=== PATIENT | male | born 1990 | race Caucasian/White ===

== ENCOUNTER 2017-03-22 16:22 | Inpatient (IN) ==
[~2017-03-22 16:22] MED LIST: *HR* Rocuronium Bromide 100 MG/10 ML VIAL IVC ONE
[2017-03-22] MEDS ORDERED: *HR* Midazolam HCl 5 MG/ML VIAL IVP ONE (16:24)
--- NOTE | 2017-03-22 16:29 | Emergency Department Note ---
Overdose - Lab Data Result diagrams: 03/22/17 16:47 03/22/17 16:47 Lab Results 03/22/17 03/22/17 03/22/17 Range/Units 16:47 16:47 17:00 WBC 27.1 H (4.3-11.1) K/mcL RBC 4.88 (4.19-5.50) M/mcL Hgb 14.2 (12.9-16.9) g/dL Hct 41.4 (37.5-50.1) % MCV 84.8 (83.0-100.0) fL MCH 29.1 (28.0-33.3) pg MCHC 34.3 (31.6-35.5) g/dL RDW 12.8 (11.5-14.5) % Plt Count 335 (140-400) K/mcL MPV 11.6 (9.4-12.4) fL Immature Gran % 0.6 (0-4) % Seg Neutrophils % 64.0 % Lymphocytes % 31.6 % Monocytes % 3.1 % Eosinophils % 0.4 % Basophils % 0.3 % Neutrophils # 17.3 H (1.6-8.9) K/mcL Lymphocytes # 8.6 H (0.6-4.6) K/mcL Monocytes # 0.8 (0.0-1.3) K/mcL Eosinophils # 0.1 (0.0-0.6) K/mcL Basophils # 0.1 (0.0-0.2) K/mcL Reactive Lymphocytes Present A (Not Present) ABG pH (7.32-7.45) pH Units ABG pCO2 (35-45) mmHg ABG pO2 (85-104) mmHg ABG HCO3 (21-27) mEQ/L ABG Total CO2 (20-26) mEq/L ABG O2 Saturation (95-98) % ABG Base Excess (-2.0 to 3.0) mEq/L Blood Gas Modality Inspired O2 % Sodium 145 (136-145) mEq/L Potassium 3.7 (3.5-4.5) mEq/L Chloride 108 (98-109) mEq/L Carbon Dioxide 14 L (19-29) mEq/L BUN 7 L (8-26) mg/dL Creatinine 1.26 H (0.72-1.25) mg/dL Est GFR ( Amer) > 60 (> 60) Est GFR (Non-Af Amer) > 60 (> 60) BUN/Creatinine Ratio 6 (6-26) Glucose 253 H (70-99) mg/dL Calculated Osmolality 307 H (280-300) Lactic Acid (0.5-2.2) mmol/L Calcium 9.2 (8.6-10.8) mg/dL Total Bilirubin 0.4 (0.2-1.2) mg/dL Direct Bilirubin 0.2 (0.0-0.5) mg/dL Indirect Bilirubin 0.2 (0.0-1.2) mg/dL AST 26 (5-34) Units/L ALT 17 (0-55) Units/L Alkaline Phosphatase 72 (38-126) Units/L Creatine Kinase 182 (30-200) Units/L Serum Total Protein 8.0 (6.0-8.3) g/dL Albumin 4.2 (3.5-5.0) g/dL Globulin 3.8 H (2.4-3.5) g/dL Albumin/Globulin Ratio 1.1 (1.1-2.2) Urine Color Yellow (Yellow) Urine Clarity Cloudy A (Clear) Urine pH 6.0 (5.0-8.0) pH Units Ur Specific Hayden 1.023 (1.010-1.025) Urine Protein >=300 H (Neg-Trace) mg/dL Urine Glucose (UA) 500 H (Normal) mg/dL Urine Ketones Negative (Negative) mg/dL Urine Blood Moderate H (Negative) Urine Nitrite Negative (Negative) Urine Bilirubin Negative (Negative) Urine Urobilinogen Normal (Normal) mg/dL Ur Leukocyte Esterase Negative (Negative) Urine Microscopic RBC 5-15 H (0-3) per hpf Urine Microscopic WBC 5-15 H (0-3) per hpf Ur Squamous Epith Cells Many H (None-Few) per lpf Urine Bacteria None Seen (None-Few) per hpf Hyaline Casts Moderate H (None-Few) per lpf CSF Volume mL CSF Appearance (Clear) CSF Color (Colorless) CSF RBC (0.000 - 0.002) M/mcL CSF Tot Nucleated Cells (0-5) TNC/mcL CSF Glucose (40-70) mg/dL CSF Xanth Comm (Not Observe) CSF Total Protein (15-45) mg/dL Salicylates < 5.0 L (15-30) mg/dL Urine Opiates Screen (Ajisdm=888) ng/mL Acetaminophen < 1.0 L (10-30) mcg/mL Ur Barbiturates Screen (Qslkdz=725) ng/mL Ur Phencyclidine Scrn (Cutoff=25) ng/mL Ur Amphetamines Screen (Nzotiw=9837) ng/mL U Benzodiazepines Scrn (Ewqowl=625) ng/mL Urine Cocaine Screen (Cutoff= 300) ng/mL U Marijuana (THC) Screen (Cutoff = 50) ng/mL Ethyl Alcohol < 10 (0-10) mg/dL 03/22/17 03/22/17 03/22/17 Range/Units 17:00 17:48 18:01 WBC (4.3-11.1) K/mcL RBC (4.19-5.50) M/mcL Hgb (12.9-16.9) g/dL Hct (37.5-50.1) % MCV (83.0-100.0) fL MCH (28.0-33.3) pg MCHC (31.6-35.5) g/dL RDW (11.5-14.5) % Plt Count (140-400) K/mcL MPV (9.4-12.4) fL Immature Gran % (0-4) % Seg Neutrophils % % Lymphocytes % % Monocytes % % Eosinophils % % Basophils % % Neutrophils # (1.6-8.9) K/mcL Lymphocytes # (0.6-4.6) K/mcL Monocytes # (0.0-1.3) K/mcL Eosinophils # (0.0-0.6) K/mcL Basophils # (0.0-0.2) K/mcL Reactive Lymphocytes (Not Present) ABG pH (7.32-7.45) pH Units ABG pCO2 (35-45) mmHg ABG pO2 (85-104) mmHg ABG HCO3 (21-27) mEQ/L ABG Total CO2 (20-26) mEq/L ABG O2 Saturation (95-98) % ABG Base Excess (-2.0 to 3.0) mEq/L Blood Gas Modality Inspired O2 % Sodium (136-145) mEq/L Potassium (3.5-4.5) mEq/L Chloride (98-109) mEq/L Carbon Dioxide (19-29) mEq/L BUN (8-26) mg/dL Creatinine (0.72-1.25) mg/dL Est GFR ( Amer) (> 60) Est GFR (Non-Af Amer) (> 60) BUN/Creatinine Ratio (6-26) Glucose (70-99) mg/dL Calculated Osmolality (280-300) Lactic Acid 5.1 H* (0.5-2.2) mmol/L Calcium (8.6-10.8) mg/dL Total Bilirubin (0.2-1.2) mg/dL Direct Bilirubin (0.0-0.5) mg/dL Indirect Bilirubin (0.0-1.2) mg/dL AST (5-34) Units/L ALT (0-55) Units/L Alkaline Phosphatase (38-126) Units/L Creatine Kinase (30-200) Units/L Serum Total Protein (6.0-8.3) g/dL Albumin (3.5-5.0) g/dL Globulin (2.4-3.5) g/dL Albumin/Globulin Ratio (1.1-2.2) Urine Color (Yellow) Urine Clarity (Clear) Urine pH (5.0-8.0) pH Units Ur Specific Hayden (1.010-1.025) Urine Protein (Neg-Trace) mg/dL Urine Glucose (UA) (Normal) mg/dL Urine Ketones (Negative) mg/dL Urine Blood (Negative) Urine Nitrite (Negative) Urine Bilirubin (Negative) Urine Urobilinogen (Normal) mg/dL Ur Leukocyte Esterase (Negative) Urine Microscopic RBC (0-3) per hpf Urine Microscopic WBC (0-3) per hpf Ur Squamous Epith Cells (None-Few) per lpf Urine Bacteria (None-Few) per hpf Hyaline Casts (None-Few) per lpf CSF Volume 6.0 mL CSF Appearance Clear (Clear) CSF Color Colorless (Colorless) CSF RBC < 0.002 (0.000 - 0.002) M/mcL CSF Tot Nucleated Cells 5 (0-5) TNC/mcL CSF Glucose (40-70) mg/dL CSF Xanth Comm Not Observed (Not Observe) CSF Total Protein (15-45) mg/dL Salicylates (15-30) mg/dL Urine Opiates Screen Negative (Hpttgq=952) ng/mL Acetaminophen (10-30) mcg/mL Ur Barbiturates Screen Negative (Thblip=854) ng/mL Ur Phencyclidine Scrn Negative (Cutoff=25) ng/mL Ur Amphetamines Screen Negative (Ytqhqi=0163) ng/mL U Benzodiazepines Scrn Positive H (Lwbjgx=539) ng/mL Urine Cocaine Screen Negative (Cutoff= 300) ng/mL U Marijuana (THC) Screen Negative (Cutoff = 50) ng/mL Ethyl Alcohol (0-10) mg/dL 03/22/17 03/22/17 Range/Units 18:01 18:30 WBC (4.3-11.1) K/mcL RBC (4.19-5.50) M/mcL Hgb (12.9-16.9) g/dL Hct (37.5-50.1) % MCV (83.0-100.0) fL MCH (28.0-33.3) pg MCHC (31.6-35.5) g/dL RDW (11.5-14.5) % Plt Count (140-400) K/mcL MPV (9.4-12.4) fL Immature Gran % (0-4) % Seg Neutrophils % % Lymphocytes % % Monocytes % % Eosinophils % % Basophils % % Neutrophils # (1.6-8.9) K/mcL Lymphocytes # (0.6-4.6) K/mcL Monocytes # (0.0-1.3) K/mcL Eosinophils # (0.0-0.6) K/mcL Basophils # (0.0-0.2) K/mcL Reactive Lymphocytes (Not Present) ABG pH 7.28 L (7.32-7.45) pH Units ABG pCO2 57 H (35-45) mmHg ABG pO2 245 H (85-104) mmHg ABG HCO3 26.8 (21-27) mEQ/L ABG Total CO2 28.5 H (20-26) mEq/L ABG O2 Saturation 100 H (95-98) % ABG Base Excess -0.8 (-2.0 to 3.0) mEq/L Blood Gas Modality VC+ Inspired O2 50 % Sodium (136-145) mEq/L Potassium (3.5-4.5) mEq/L Chloride (98-109) mEq/L Carbon Dioxide (19-29) mEq/L BUN (8-26) mg/dL Creatinine (0.72-1.25) mg/dL Est GFR ( Amer) (> 60) Est GFR (Non-Af Amer) (> 60) BUN/Creatinine Ratio (6-26) Glucose (70-99) mg/dL Calculated Osmolality (280-300) Lactic Acid (0.5-2.2) mmol/L Calcium (8.6-10.8) mg/dL Total Bilirubin (0.2-1.2) mg/dL Direct Bilirubin (0.0-0.5) mg/dL Indirect Bilirubin (0.0-1.2) mg/dL AST (5-34) Units/L ALT (0-55) Units/L Alkaline Phosphatase (38-126) Units/L Creatine Kinase (30-200) Units/L Serum Total Protein (6.0-8.3) g/dL Albumin (3.5-5.0) g/dL Globulin (2.4-3.5) g/dL Albumin/Globulin Ratio (1.1-2.2) Urine Color (Yellow) Urine Clarity (Clear) Urine pH (5.0-8.0) pH Units Ur Specific Hayden (1.010-1.025) Urine Protein (Neg-Trace) mg/dL Urine Glucose (UA) (Normal) mg/dL Urine Ketones (Negative) mg/dL Urine Blood (Negative) Urine Nitrite (Negative) Urine Bilirubin (Negative) Urine Urobilinogen (Normal) mg/dL Ur Leukocyte Esterase (Negative) Urine Microscopic RBC (0-3) per hpf Urine Microscopic WBC (0-3) per hpf Ur Squamous Epith Cells (None-Few) per lpf Urine Bacteria (None-Few) per hpf Hyaline Casts (None-Few) per lpf CSF Volume mL CSF Appearance (Clear) CSF Color (Colorless) CSF RBC (0.000 - 0.002) M/mcL CSF Tot Nucleated Cells (0-5) TNC/mcL CSF Glucose 100 H (40-70) mg/dL CSF Xanth Comm (Not Observe) CSF Total Protein 44 (15-45) mg/dL Salicylates (15-30) mg/dL Urine Opiates Screen (Phnngd=081) ng/mL Acetaminophen (10-30) mcg/mL Ur Barbiturates Screen (Kwulzv=416) ng/mL Ur Phencyclidine Scrn (Cutoff=25) ng/mL Ur Amphetamines Screen (Owpcqy=6700) ng/mL U Benzodiazepines Scrn (Xtrgql=669) ng/mL Urine Cocaine Screen (Cutoff= 300) ng/mL U Marijuana (THC) Screen (Cutoff = 50) ng/mL Ethyl Alcohol (0-10) mg/dL Overdose HPI - General Chief Complaint: ED Overdose Stated Complaint: Overdose Source: EMS Mode of arrival: EMS Limitations: altered mental status Nursing Notes Reviewed: Yes Vital Signs Reviewed: Yes - History of Present Illness HPI Narrative: Patient is a 26-year-old male who came by embolus for overdose. EMS was called to 2 victims at the same residence both unresponsive secondary to drug ingestion. The bystanders state they snorted the substance at the home. Both were unresponsive to medics responded to the scene. The other patient responded to 10 mg of Narcan Mr. Riley had 6 mg of Narcan and woke up started spontaneously breathing but was extremely agitated. On arrival here he was very agitated saying some people's names and uncooperative Pt Subjective Complaint: accidental overdose Treatments Prior to Arrival: narcan (6) - Related Data Home Medications Medication Instructions Recorded Confirmed Ibuprofen 10/26/16 Previous Rx's Medication Instructions Recorded Ziprasidone HCl [Geodon] 40 mg PO HS #30 capsule 07/02/16 Clindamycin HCl [Cleocin HCl] 300 mg PO TID #30 cap 10/26/16 Diclofenac Sodium [Voltaren] 50 mg PO Q8HR PRN #30 tablet. 10/26/16 Mupirocin [Bactroban Oint] 1 appl TP BID #22 g 10/26/16 Allergies Allergy/AdvReac Type Severity Reaction Status Date / Time No Known Allergies Allergy Verified 01/31/17 17:52 Limitations: ROS unobtainable due to patients medical condition Past Medical History - Past Medical History Source: old records reviewed, nursing notes reviewed Medical history: Reports: migraine, other Surgical history: Reports: no surgical history Psychiatric history: Reports: anxiety, depression - Social History Smoking Status: Never smoker Smokeless Tobacco Status: No Alcohol use: Reports: rarely Drug use: Reports: none Physical Exam - General Limitations: other ( acutely agitated) - Head Head exam: other (Asians posterior scalp) - Eye Eye exam: Present: mydriasis - ENT ENT exam: normal oropharynx - Chest Chest inspection: Present: normal inspection, symmetric chest wall rise - Respiratory Respiratory exam: Present: normal lung sounds bilaterally - Cardiovascular Cardiovascular exam: Present: regular rate, normal rhythm, normal heart sounds - Psychiatric Psychiatric exam: Present: agitated - Skin Skin exam: Present: diaphoresis Course Course Narrative: Patient received Versed 5 g IM this relaxed him enough to place an IV after multiple doses of Ativan the patient was still agitated and confused we elected at that time to intubate him for his own safety and also to continue the diagnostic workup. After the intubation CT of the head was negative an LP was performed. The patient did have leukocytosis and elevated temp that did decrease after the patient was sedated. He was given fluid resuscitation and sedation and analgesia with propofol and fentanyl. I spoke with the hospitalist service nurse practitioner Trang and also the ICU resident blood cultures were performed and they were transferred port patient to the ICU at this time they do not request any anabolic therapy. 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 Vital Signs Temperature 101 F H 03/22/17 16:27 Pulse Rate 155 03/22/17 16:27 Respiratory Rate 18 03/22/17 16:27 Blood Pressure 90/42 03/22/17 16:27 O2 Sat by Pulse Oximetry 95 03/22/17 16:27 Temperature 99.2 F 03/22/17 19:14 Pulse Rate 105 03/22/17 19:14 Respiratory Rate 16 03/22/17 19:51 Blood Pressure 96/58 03/22/17 19:51 O2 Sat by Pulse Oximetry 100 03/22/17 19:14 Oxygen Delivery Oxygen Delivery Room Air,Ventilator Procedures - Intubation Time out performed: Yes sedative: Versed paralytic: Rocuronium Laryngoscope: fiber optic video scope ET Tube Size: 8 ET Tube Uncuffed: Yes Tube Secured Location: lips Tube Placement Confirmation: visualized tube passing through cords, equal breath sounds bilaterally, confirmation by capnometry Patient Tolerated Procedure: well Intubation Complications: none - Lumbar Puncture Time Out Performed: Yes Patient Position: right lateral decubitus Skin Prep: Povidone-Iodine 1% Local Anesthetic: lidocaine 1% Spinal Needle Gauge: 20G Interspace Used: L4-L5 Fluid Initially Obtained: clear Complications: none Critical Care Time Critical Care Time: Yes Total Critical Care Time: 60 Attestation: Critical care performed: Time is exclusive of separately billable procedures. Time includes: direct patient care, patient reassessment, coordination of patient care, interpretation of data (laboratory data, radiology data, and respiratory data), review of patient's medical records, medical consultation and documentation of patient care. Procedures included in critical care time: Procedures excluded from critical care time: Disposition Clinical Impression: Lactic acidosis Overdose Qualifiers: Encounter type: initial encounter Injury intent: undetermined intent Qualified Code(s): T50.904A - Poisoning by unspecified drugs, medicaments and biological substances, undetermined, initial encounter Disposition: Admitted As Inpatient Condition: Critical
[2017-03-22] MEDS ORDERED: *HR* LORazepam 2 MG/ML VIAL IVP ONE ×3 (16:43→17:03)
[2017-03-22] MEDS ORDERED: *HR* LORazepam 2 MG/ML VIAL ONE (16:45)
[2017-03-22] MEDS ORDERED: 0.9 % Sodium Chloride 1,000 ML IVC ONE ×2 (16:53→17:51)
[2017-03-22 16:55] LABS: Eosinophils % 0.4 %; Immature Granulocytes % 0.6 % (0-4); Lymphocytes % 31.6 %; Mean Platelet Volume 11.6 fL (9.4-12.4)
[2017-03-22 16:56] LABS: Basophils # 0.1 K/mcL (0.0-0.2); Basophils % 0.3 %; Eosinophils # 0.1 K/mcL (0.0-0.6); Hematocrit 41.4 % (37.5-50.1); Hemoglobin 14.2 g/dL (12.9-16.9); Lymphocytes # 8.6 K/mcL (0.6-4.6); Mean Corpuscular HGB Conc 34.3 g/dL (31.6-35.5); Mean Corpuscular Hemoglobin 29.1 pg (28.0-33.3); Mean Corpuscular Volume 84.8 fL (83.0-100.0); Monocytes # 0.8 K/mcL (0.0-1.3); Monocytes % 3.1 %; Neutrophils # 17.3 K/mcL (1.6-8.9); Platelet Count 335 K/mcL (140-400); Red Blood Count 4.88 M/mcL (4.19-5.50); Red Cell Distribution Width 12.8 % (11.5-14.5)
[2017-03-22 17:09] LABS: Alanine Aminotransferase 17 Units/L (0-55); Albumin 4.2 g/dL (3.5-5.0); Albumin/Globulin Ratio 1.1 (1.1-2.2); Alkaline Phosphatase 72 Units/L (38-126); Aspartate Amino Transferase 26 Units/L (5-34); BUN/Creatinine Ratio 6 (6-26); Bilirubin,Direct 0.2 mg/dL (0.0-0.5); Bilirubin,Indirect 0.2 mg/dL (0.0-1.2); Bilirubin,Total 0.4 mg/dL (0.2-1.2); Blood Urea Nitrogen 7 mg/dL (8-26); Calcium 9.2 mg/dL (8.6-10.8); Carbon Dioxide 14 mEq/L (19-29); Chloride 108 mEq/L (98-109); Creatine Kinase 182 Units/L (30-200); Globulin 3.8 g/dL (2.4-3.5); Glucose 253 mg/dL (70-99); Osmolality,Calculated 307 (280-300); Potassium 3.7 mEq/L (3.5-4.5); Sodium 145 mEq/L (136-145); eGFR For African Americans > 60 (> 60); eGFR For Non-African Americans > 60 (> 60)
[2017-03-22 17:10] LABS: Acetaminophen < 1.0 mcg/mL (10-30); Ethanol < 10 mg/dL (0-10); Salicylate < 5.0 mg/dL (15-30)
[2017-03-22 17:11] LABS: Bilirubin,Urine Negative (Negative); Blood,Urine Moderate (Negative); Clarity,Urine Cloudy (Clear); Color,Urine Yellow (Yellow); Glucose,Urine (UA) 500 mg/dL (Normal); Ketones,Urine Negative (Negative); Leukocyte Esterase,Urine Negative (Negative); Nitrite,Urine Negative (Negative); Protein,Urine >=300 mg/dL (Neg-Trace); Specific Gravity,Urine 1.023 (1.010-1.025); Urobilinogen,Urine Normal (Normal)
[2017-03-22] MEDS ORDERED: *HR* Rocuronium Bromide 50 MG/5 ML VIAL IVP ONE ×2 (17:12→17:26)
[2017-03-22 17:14] LABS: Bacteria,Urine None Seen per hpf (None-Few); Hyaline Casts,Urine Moderate per lpf (None-Few); Squamous Epithelial Cell,Urine Many per lpf (None-Few)
[2017-03-22 17:17] LABS: Reactive Lymphocytes Present (Not Present)
[2017-03-22 17:17] LABS: Amphetamine Screen,Urine Negative ng/mL (Cutoff=1000); Barbiturate Screen,Urine Negative ng/mL (Cutoff=200); Benzodiazepines Screen,Urine Positive ng/mL (Cutoff=200); Cannabinoid Screen,Urine Negative ng/mL (Cutoff = 50); Cocaine Screen,Urine Negative ng/mL (Cutoff= 300); Opiate Screen,Urine Negative ng/mL (Cutoff=300); Phencyclidine Screen,Urine Negative ng/mL (Cutoff=25)
[2017-03-22] MEDS ORDERED: Propofol 500 MG/50 ML INFUS..BTL ONE ×2 (17:25→20:10)
[2017-03-22 18:36] LABS: ABG Base Excess -0.8 mEq/L (-2.0 to 3.0); ABG HCO3 26.8 mEQ/L (21-27); ABG Oxygen Saturation 100 % (95-98); ABG PCO2 57 mmHg (35-45); ABG PH 7.28 pH Units (7.32-7.45); ABG PO2 245 mmHg (85-104); ABG TCO2 28.5 mEq/L (20-26)
[2017-03-22 18:38] LABS: Blood Gas FiO2 50 %
[2017-03-22 18:42] LABS: Red Blood Cell,CSF < 0.002 M/mcL
[2017-03-22 18:43] LABS: Appearance,CSF Clear (Clear); Glucose,CSF 100 mg/dL (40-70); Total Protein,CSF 44 mg/dL (15-45)
[2017-03-22] MEDS ORDERED: *HR* FentaNYL (PF) 100 MCG/2 ML VIAL IVP ONE (19:09)
[2017-03-22] MEDS ORDERED: Naloxone 0.4 MG/ML INJ IVP PRN (19:40)
--- NOTE | 2017-03-22 20:04 | Internal Med History&Physical ---
Date of Encounter: 03/22/17 Time of Encounter: 20:01 Assessment and Plan (1) Acute respiratory failure Current visit: Yes Status: Acute Likely related to overdose as discussed below. Continue ventilator support. Repeat ABG and adjust vent based on ABG findings. Critical care consult Qualifiers: Respiratory failure complication: hypoxia and hypercapnia Qualified Code(s) : J96.01 - Acute respiratory failure with hypoxia; J96.02 - Acute respiratory failure with hypercapnia (2) Overdose Current visit: Yes Status: Acute Patient ingestion of unknown substance with possibly opioids as well. Patient apparently responded initially to Narcan 6mg and then became extremely agitated and would not respond to sedation so the patient was intubated in the emergency department. Drug screen was positive for benzodiazepines however this was obtained after the patient received Versed and lorazepam for attempted sedation. Drug screen was otherwise negative. Patient does have an anion gap Metabolic acidosis. Possible causes could be lactic acidosis or coingestions with methanol, ethylene glycol, or propylene glycol. We will check serum osmolality for osmolar gap. We will check methanol level. We will recheck lactic acid. Patient does meet SIRS criteria however there is no source of infection. Leukocytosis, tachycardia, fever is likely due to agitation and stress response from ingestion and agitation related to ingestion. LP is done and is not concerning for infection. We will hold off on antibiotics at this time, if the patient continues to spike fevers, leukocytosis persists, or source of infection presents itself we will initiate antibiotics. Qualifiers: Encounter type: initial encounter Injury intent: undetermined intent Qualified Code(s): T50.904A - Poisoning by unspecified drugs, medicaments and biological substances, undetermined, initial encounter (3) LORETTA (acute kidney injury) Current visit: Yes Status: Acute Creatinine 1.26 on presentation, was 0.87 on January 31. Likely related to prerenal azotemia. Patient has good urine output. Will fluid hydrate and recheck creatinine in the morning (4) Lactic acidosis Current visit: Yes Status: Acute 5.1 on presentation. Likely due to hypoperfusion in the setting of drug overdose and concern for opiates or some other [employer] depressant. Blood pressure stable at this time. Patient received 2 L bolus in the emergency department and maintenance fluid have been initiated. We will recheck lactic acid. (5) DVT prophylaxis Current visit: Yes Status: Acute Heparin 5000 units subcutaneous every 8 hours. Internal Medicine - H&P: HPI Chief complaint: Overdose Admitted From: Emergency Dept Plans for Post Hospital Care: Home History of present illness: Mr. Desai is a 26 year old male who presents with overdose. Patient is intubated and sedated and is therefore unable to give a history, history is obtained from the ER physician and documentation. Apparently the patient was wanted to suspected overdoses from the same home who are brought into the emergency department at the same time. Records report that bystanders stated that they snorted an unknown substance and then became unresponsive. Patient was given 6 mg of Narcan by EMS and became extremely agitated. Patient remained significantly agitated despite medication therefore the emergency department determined to intubate for patient safety. At the time I examined the patient was intubated and sedated but was moving all 4 extremities spontaneously. Past Med Surg Social Fam HX - Past Medical History Source: other (History listed is derived from previous admissions, history at this time is unobtainable due to mental status) Medical history: migraine, other Psychiatric history: anxiety, depression - Past Surgical History Surgical History: no surgical history (History listed is derived from previous admissions, history at this time is unobtainable due to mental status) - Social History Smoking Status: Never smoker Smokeless Tobacco Status: No Alcohol use: rarely Drug use: none Additional social history: History listed is derived from previous admissions, history at this time is unobtainable due to mental status - Additional Family History Additional family history: Family history is unobtainable at this time due to mental status. Internal Medicine - H&P: Meds Ziprasidone HCl [Geodon] 40 mg PO HS #30 capsule 07/02/16 [Rx] Clindamycin HCl [Cleocin HCl] 300 mg PO TID #30 cap 10/26/16 [Rx] Diclofenac Sodium [Voltaren] 50 mg PO Q8HR PRN #30 tablet. 10/26/16 [Rx] Ibuprofen 10/26/16 [History] Mupirocin [Bactroban Oint] 1 appl TP BID #22 g 10/26/16 [Rx] Allergies No Known Allergies Allergy (Verified 01/31/17 17:52) ROS unobtainable: due to endotracheal tube All Systems PM: A 10-system review of systems was performed and is negative for pertinent findings except as documented above in the HPI. - Constitutional Vitals: Temp Pulse Resp BP Pulse Ox 99.2 F 105 16 96/58 100 03/22/17 19:14 03/22/17 19:14 03/22/17 19:51 03/22/17 19:51 03/22/17 19:14 Exam: Patient is intubated and sedated. He is moving all 4 extremities spontaneously but is otherwise nonresponsive. He does not appear to be in any acute distress. - Head Head exam: Present: atraumatic, normal inspection, normocephalic - Eye Additional comments: Pupils are constricted but reactive to light equally - ENT ENT exam: Present: mucous membranes moist - Neck Neck exam general surgery: Present: supple, trachea midline. Absent: nuchal rigidity - Respiratory Respiratory exam: Present: CTAB. Absent: rales, respiratory distress, rhonchi, wheezes, tachypnea - Cardiovascular Cardiovascular exam: Present: RRR. Absent: gallop, rubs, systolic murmur - GI/Abdominal GI/Abdominal exam: Present: normal bowel sounds, soft. Absent: distended, tenderness - Extremities Exam Extremities exam: Present: warm. Absent: pedal edema, tenderness - Neurological Exam Additional comments: Patient is intubated and sedated so is unable to participate in the neuro exam. Patient is moving all 4 extremities spontaneously. - Psychiatric Additional comments: Unable to assess due to sedation. - Skin Skin exam: Present: dry, intact, warm Internal Med - H&P Results - Labs CBC & Chem 7: 03/22/17 16:47 03/22/17 16:47 - ABG Interpretation Interpretation: ABG interpreted by me Interpretation: respiratory acidosis, metabolic acidosis
[2017-03-22] MEDS ORDERED: Lacri-Lube 3.5 GM TUBE BOTH EYES PRN (20:09)
[2017-03-22] MEDS ORDERED: 0.9 % Sodium Chloride 1,000 ML IVC SCH (20:15)
[2017-03-22] MEDS: Chlorhexidine Rinse 15 ML MOUTHWASH MM SCH (20:59)
[2017-03-22] MEDS: Dexmedetomidine HCl 400 MCG/100 ML MLS IVC SCH (21:00)
--- NOTE | 2017-03-22 21:07 | Event Note ---
Date of Encounter: 03/22/17 Time of Encounter: 21:07 I examined this patient and my medical decision-making was reviewed with Dr. Cochran. I agree with the documented findings, disposition and treatment plan as described except to the extent set forth below. 26 yo CM brought to ER after ingestion of unknown substance along with another patient. The other patient responded after 10 mg of Narcan. However, Mr. Desai became extremely agitated after 6 mg narcan and had to be intubated for his own protection and to provide care. He had a fever on arrival of 101. He had a LP in the ER. On exam, he is intubated on propofol but continues to move. Eyes constricted but reactive to light. CTAB. S1 & S2 present with tachycardia. OG in place. Labs reviewed. CXR personally reviewed - ET tube in satisfactory position. No infiltrates noted. A/P: 1. Acute hypoxic and hypercapnic respiratory failure - Continue ventilator with sedation. Precedex added as the patient continues to move on propofol. VAP precautions. ABG repeat and adjust vent. settings accordingly. Pulm. Crit. care consult. Admit to inpatient status. ICU. Telemetry. High risk due to need for ventilator support and risk of sepsis. 2. OD with opioids and possibly another substance: Sedation now with ventilation. Monitor off antibiotics. Blood cultures obtained. Will follow and if spikes another temp., will start abx. 3. SIRS - due to Overdose. No focal source of infection appreciated. 4. Respiratory acidosis and AG metabolic acidosis on presentation FELIPE Graves
[2017-03-22 21:30] LABS: ABG Base Excess 0.4 mEq/L (-2.0 to 3.0); ABG HCO3 26.5 mEQ/L (21-27); ABG Oxygen Saturation 100 % (95-98); ABG PCO2 48 mmHg (35-45); ABG PH 7.35 pH Units (7.32-7.45); ABG PO2 221 mmHg (85-104); Blood Gas FiO2 50 %
[2017-03-22 21:45] LABS: BUN/Creatinine Ratio 8 (6-26); Blood Urea Nitrogen 7 mg/dL (8-26); Calcium 8.2 mg/dL (8.6-10.8); Carbon Dioxide 25 mEq/L (19-29); Chloride 112 mEq/L (98-109); Glucose 88 mg/dL (70-99); Magnesium 1.8 mg/dL (1.6-2.6); Osmolality,Calculated 299 (280-300); Potassium 3.2 mEq/L (3.5-4.5); Sodium 146 mEq/L (136-145); eGFR For African Americans > 60 (> 60); eGFR For Non-African Americans > 60 (> 60)
[2017-03-22] MEDS ORDERED: Potassium Chloride Elixir 20 MEQ/15 ML UDC GTUBE ONE (22:56)
[2017-03-22] MEDS: D5% in 0.45% NACL 1,000 ML IVC SCH (23:02)
[2017-03-22] MEDS: *HR* Heparin 5,000 UNIT/ML VIAL SQ SCH (23:02)
[2017-03-22] MEDS: Lacri-Lube 3.5 GM TUBE BOTH EYES SCH (23:02)
[2017-03-23] MEDS: Lacri-Lube 3.5 GM TUBE BOTH EYES SCH ×3 (02:12→10:13)
[2017-03-23 03:25] LABS: Alanine Aminotransferase 15 Units/L (0-55); Albumin/Globulin Ratio 1.3 (1.1-2.2); Alkaline Phosphatase 44 Units/L (38-126); Aspartate Amino Transferase 27 Units/L (5-34); BUN/Creatinine Ratio 9 (6-26); Bilirubin,Direct 0.3 mg/dL (0.0-0.5); Bilirubin,Indirect 0.3 mg/dL (0.0-1.2); Bilirubin,Total 0.6 mg/dL (0.2-1.2); Blood Urea Nitrogen 7 mg/dL (8-26); Calcium 8.1 mg/dL (8.6-10.8); Carbon Dioxide 23 mEq/L (19-29); Chloride 113 mEq/L (98-109); Globulin 2.6 g/dL (2.4-3.5); Glucose 105 mg/dL (70-99); Magnesium 1.7 mg/dL (1.6-2.6); Osmolality,Calculated 294 (280-300); Phosphorous 2.7 mg/dL (2.3-4.7); Potassium 3.5 mEq/L (3.5-4.5); Sodium 143 mEq/L (136-145); Total Protein 5.9 g/dL (6.0-8.3); eGFR For African Americans > 60 (> 60); eGFR For Non-African Americans > 60 (> 60)
[2017-03-23 03:26] LABS: Albumin 3.3 g/dL (3.5-5.0)
[2017-03-23] MEDS: Dexmedetomidine HCl 400 MCG/100 ML MLS IVC SCH ×2 (03:38→08:30)
[2017-03-23 03:39] LABS: Basophils % 0.1 %; Eosinophils % 0.1 %; Hematocrit 32.2 % (37.5-50.1); Hemoglobin 11.1 g/dL (12.9-16.9); Immature Granulocytes % 0.2 % (0-4); Immature Platelets 7.9 % (1.1-6.1); Lymphocytes # 2.1 K/mcL (0.6-4.6); Lymphocytes % 22.7 %; Mean Corpuscular HGB Conc 34.5 g/dL (31.6-35.5); Mean Corpuscular Hemoglobin 28.7 pg (28.0-33.3); Mean Corpuscular Volume 83.2 fL (83.0-100.0); Mean Platelet Volume 11.3 fL (9.4-12.4); Monocytes # 0.6 K/mcL (0.0-1.3); Monocytes % 6.6 %; Neutrophils # 6.6 K/mcL (1.6-8.9); Platelet Count 162 K/mcL (140-400); Red Blood Count 3.87 M/mcL (4.19-5.50); Red Cell Distribution Width 12.8 % (11.5-14.5); Segmented Neutrophils % 70.3 %
[2017-03-23 04:40] LABS: ABG Base Excess 2.2 mEq/L (-2.0 to 3.0); ABG HCO3 27.8 mEQ/L (21-27); ABG Oxygen Saturation 99 % (95-98); ABG PCO2 47 mmHg (35-45); ABG PH 7.38 pH Units (7.32-7.45); ABG PO2 153 mmHg (85-104); ABG TCO2 29.2 mEq/L (20-26)
[2017-03-23 04:41] LABS: Blood Gas FiO2 30 %
[2017-03-23] MEDS: D5% in 0.45% NACL 1,000 ML IVC SCH (06:08)
[2017-03-23] MEDS: Chlorhexidine Rinse 15 ML MOUTHWASH MM SCH (08:29)
[2017-03-23] MEDS: *HR* Heparin 5,000 UNIT/ML VIAL SQ SCH ×2 (08:34→16:50)
--- NOTE | 2017-03-23 08:34 | Pulmonology Consult Note ---
<Fidel Gary - Last Filed: 03/23/17 08:47> Date of Encounter: 03/23/17 Time of Encounter: 08:28 Assessment and Plan (1) Respiratory failure Current Visit: Yes Status: Acute Secondary to Heroin use. CXr reviewed and reveals some increased pulmonary vasculature. Possibly some mild non cardiogenic pulmonary edema from Heroin. Intubated Extubated 03/23/17 Currently he is comfortable on 2L. Continue to monitor. IF develops worsening dyspnea with fever may consider Aspiration pneumonia. However no evidence at this time so we will hold off on any antibiotics. We will continue to monitor him and if he continues to improve will transfer to medicine floor later this afternoon. (2) Overdose Current Visit: Yes Status: Acute Patient states he snorted heroin for the first time. Denies suicidal ideations or depression. States he was " just trying to have a good time". (3) Lactic acidosis Current Visit: Yes Status: Acute resolved (4) LORETTA (acute kidney injury) Current Visit: Yes Status: Acute resolved (5) Leukocytosis Current Visit: Yes Status: Acute stress reaction. resolved. (6) DVT prophylaxis Current Visit: Yes Status: Acute SQ heparin History of Present Illness Consult date: 03/23/17 Requesting physician: Dell Clark Reason for consult: other (overdose) Chief complaint: AMS History of present illness: Mr. Desai is a 26-year-old male with the history of anxiety and depression who was admitted to the [facility]. He will came in with another individual reportedly had snorted a substance. The first individual came in with him improved with Narcan. However this patient became very combative and had to be intubated for his own safety per medical record. He has since been extubated is alert and orientated and following commands. Upon further questioning patient denies past medical history. He denies being on any current prescription medications. He states that he was of her friend's house and snorted heroin. He states that this was his first time doing so. He denies any IV drug use. He denies any pain or dyspnea at this time. He has no further complaints or concerns at this time. Past Med Surg Social Fam HX - Past Medical History Medical history: migraine, other Psychiatric history: anxiety, depression - Past Surgical History Surgical History: no surgical history (History listed is derived from previous admissions, history at this time is unobtainable due to mental status) - Social History Smoking Status: Never smoker Smokeless Tobacco Status: No Alcohol use: rarely Drug use: none Medications and Allergies Ibuprofen [Motrin] 200 - 400 mg PO Q4HR PRN 03/23/17 [History] Allergies No Known Allergies Allergy (Verified 01/31/17 17:52) ROS unobtainable: due to endotracheal tube All Systems: A 10-system review of systems was performed and is negative for pertinent findings except as documented above in the HPI. - Constitutional Constitutional: no chills, no weight gain, no weight loss - EENT Eyes: no loss of vision Ears: no decreased hearing - Cardiovascular Cardiovascular: no chest pain - Respiratory Respiratory: no cough, no dyspnea, no wheezing - Gastrointestinal Gastrointestinal: no abdominal pain, no diarrhea, no vomiting - Genitourinary Genitourinary: no dysuria, no hematuria - Musculoskeletal Musculoskeletal: no joint pain - Integumentary Integumentary: no rash - Psychiatric Psychiatric: no depression, no suicidal ideation - Hematologic/Lymphatic Hematologic/Lymphatic: no easy bleeding Physical Examination Vital Signs: Vital Signs, Last 4 Hours Temp Pulse Resp BP Pulse Ox 03/23/17 07:30 98.4 F 03/23/17 07:24 16 03/23/17 07:00 92 17 105/70 100 03/23/17 06:35 18 90/63 99 03/23/17 06:00 97.9 F 72 17 93/54 98 03/23/17 05:00 73 16 92/55 98 03/23/17 04:56 97.9 F Gen.: This is a well-developed well-nourished 26-year-old male who is currently alert and orientated to person place time and situation. Lying in bed appears to be comfortable and in no acute distress. Head: Head is normocephalic atraumatic. HEENT: Anicteric sclera, pupils equally round reactive light accommodation. Moist mucous membranes. Trachea midline. Heart: Regular rate and rhythm without murmurs rubs or gallops. Lungs: Mild expiratory wheezes bilaterally that results in cough. Normal effort breathing. Abdomen: Abdomen is soft, nondistended nontender to palpation. Musculoskeletal: Grossly normal for age no gross deformity noted. Extremities: No clubbing, cyanosis or edema. Integument: No rashes or lesions noted. Ventilator Settings Ventilator Settings: Ventilator Settings, Last 8 Hours Ventilator Mode CPAP Ventilator Mode CPAP Ventilator Mode VC+ Ventilator Mode VC+ Ventilator Mode VC+ Ventilator Mode VC+ Ventilator Mode VC+ Ventilator Mode VC+ Ventilator Mode VC+ Ventilator Mode VC+ Ventilator Mode VC+ Ventilator Tidal Volume 400 Setting Ventilator Tidal Volume 400 Setting Ventilator Tidal Volume 400 Setting Ventilator Tidal Volume 400 Setting Ventilator Tidal Volume 400 Setting Ventilator Respiratory Rate 14 Setting Ventilator Respiratory Rate 14 Setting Ventilator Respiratory Rate 14 Setting Ventilator Respiratory Rate 14 Setting Ventilator Respiratory Rate 14 Setting Actual Respiratory Rate 18 Actual Respiratory Rate 18 Actual Respiratory Rate 18 Actual Respiratory Rate 18 Actual Respiratory Rate 14 Positive End Expiratory 5 Pressure Positive End Expiratory 5 Pressure Positive End Expiratory 5 Pressure Positive End Expiratory 5 Pressure Positive End Expiratory 5 Pressure Positive End Expiratory 5 Pressure Peak Inspiratory Airway 11 Pressure Peak Inspiratory Airway 16 Pressure Peak Inspiratory Airway 16 Pressure Peak Inspiratory Airway 16 Pressure Peak Inspiratory Airway 18 Pressure Results - Laboratory Findings CBC and BMP: 03/23/17 03:27 03/23/17 03:03 ABG ABG pH 7.38 pH Units (7.32-7.45) 03/23/17 04:30 ABG pCO2 47 mmHg (35-45) H 03/23/17 04:30 ABG pO2 153 mmHg (85-104) H 03/23/17 04:30 ABG O2 Saturation 99 % (95-98) H 03/23/17 04:30 Abnormal lab findings: Abnormal lab results RBC 3.87 M/mcL (4.19-5.50) L 03/23/17 03:27 Hgb 11.1 g/dL (12.9-16.9) L D 03/23/17 03:27 Hct 32.2 % (37.5-50.1) L 03/23/17 03:27 Reactive Lymphocytes Present (Not Present) A 03/22/17 16:47 Immature Plt Fraction 7.9 % (1.1-6.1) H 03/23/17 03:27 ABG pCO2 47 mmHg (35-45) H 03/23/17 04:30 ABG pO2 153 mmHg (85-104) H 03/23/17 04:30 ABG HCO3 27.8 mEQ/L (21-27) H 03/23/17 04:30 ABG Total CO2 29.2 mEq/L (20-26) H 03/23/17 04:30 ABG O2 Saturation 99 % (95-98) H 03/23/17 04:30 Chloride 113 mEq/L (98-109) H 03/23/17 03:03 BUN 7 mg/dL (8-26) L 03/23/17 03:03 Glucose 105 mg/dL (70-99) H 03/23/17 03:03 POC Glucose 95 (58-89) H 03/22/17 20:28 Serum Osmolality 301 mOsm/kg (280-300) H 03/22/17 21:25 Calcium 8.1 mg/dL (8.6-10.8) L 03/23/17 03:03 Serum Total Protein 5.9 g/dL (6.0-8.3) L D 03/23/17 03:03 Albumin 3.3 g/dL (3.5-5.0) L D 03/23/17 03:03 Urine Clarity Cloudy (Clear) A 03/22/17 17:00 Urine Protein >=300 mg/dL (Neg-Trace) H 03/22/17 17:00 Urine Glucose (UA) 500 mg/dL (Normal) H 03/22/17 17:00 Urine Blood Moderate (Negative) H 03/22/17 17:00 Urine Microscopic RBC 5-15 per hpf (0-3) H 03/22/17 17:00 Urine Microscopic WBC 5-15 per hpf (0-3) H 03/22/17 17:00 Ur Squamous Epith Cells Many per lpf (None-Few) H 03/22/17 17:00 Hyaline Casts Moderate per lpf (None-Few) H 03/22/17 17:00 CSF Glucose 100 mg/dL (40-70) H 03/22/17 18:01 Salicylates < 5.0 mg/dL (15-30) L 03/22/17 16:47 Acetaminophen < 1.0 mcg/mL (10-30) L 03/22/17 16:47 U Benzodiazepines Scrn Positive ng/mL ([id number]) H 03/22/17 17:00 - Clinical Findings Intake & Output: Intake & Output 03/22/17 03/23/17 03/23/17 23:59 07:59 15:59 Intake Total 1450 / 2450 1180 / 1180 Output Total 1000 / 1000 300 / 300 Balance 450 / 1450 880 / 880 Consult Discharge Plan - Plan Referrals: NO,PCP [Primary Care Provider] - <Srinath Rodriguez M - Last Filed: 03/23/17 16:38> Date of Encounter: 03/23/17 Past Med Surg Social Fam HX - Family History Mother Living Status: Still Living Father Living Status: Age at : 60 Cause of : HIV All Systems: A 10-system review of systems was performed and is negative for pertinent findings except as documented above in the HPI. Physical Examination Vital Signs: Vital Signs, Last 4 Hours Temp Pulse Resp BP Pulse Ox 03/23/17 10:00 110/72 03/23/17 08:00 90 16 101/63 100 03/23/17 07:30 98.4 F 03/23/17 07:24 16 03/23/17 07:00 92 17 105/70 100 03/23/17 06:35 18 90/63 99 Ventilator Settings Ventilator Settings: Ventilator Settings, Last 8 Hours Ventilator Mode CPAP Ventilator Mode CPAP Ventilator Mode VC+ Ventilator Mode VC+ Ventilator Mode VC+ Ventilator Mode VC+ Ventilator Mode VC+ Ventilator Mode VC+ Ventilator Tidal Volume 400 Setting Ventilator Tidal Volume 400 Setting Ventilator Tidal Volume 400 Setting Ventilator Tidal Volume 400 Setting Ventilator Respiratory Rate 14 Setting Ventilator Respiratory Rate 14 Setting Ventilator Respiratory Rate 14 Setting Ventilator Respiratory Rate 14 Setting Actual Respiratory Rate 18 Actual Respiratory Rate 18 Actual Respiratory Rate 18 Actual Respiratory Rate 18 Positive End Expiratory 5 Pressure Positive End Expiratory 5 Pressure Positive End Expiratory 5 Pressure Positive End Expiratory 5 Pressure Positive End Expiratory 5 Pressure Peak Inspiratory Airway 11 Pressure Peak Inspiratory Airway 16 Pressure Peak Inspiratory Airway 16 Pressure Peak Inspiratory Airway 16 Pressure Results - Laboratory Findings CBC and BMP: 03/23/17 03:27 03/23/17 03:03 ABG ABG pH 7.38 pH Units (7.32-7.45) 03/23/17 04:30 ABG pCO2 47 mmHg (35-45) H 03/23/17 04:30 ABG pO2 153 mmHg (85-104) H 03/23/17 04:30 ABG O2 Saturation 99 % (95-98) H 03/23/17 04:30 Abnormal lab findings: Abnormal lab results RBC 3.87 M/mcL (4.19-5.50) L 03/23/17 03:27 Hgb 11.1 g/dL (12.9-16.9) L D 03/23/17 03:27 Hct 32.2 % (37.5-50.1) L 03/23/17 03:27 Reactive Lymphocytes Present (Not Present) A 03/22/17 16:47 Immature Plt Fraction 7.9 % (1.1-6.1) H 03/23/17 03:27 ABG pCO2 47 mmHg (35-45) H 03/23/17 04:30 ABG pO2 153 mmHg (85-104) H 03/23/17 04:30 ABG HCO3 27.8 mEQ/L (21-27) H 03/23/17 04:30 ABG Total CO2 29.2 mEq/L (20-26) H 03/23/17 04:30 ABG O2 Saturation 99 % (95-98) H 03/23/17 04:30 Chloride 113 mEq/L (98-109) H 03/23/17 03:03 BUN 7 mg/dL (8-26) L 03/23/17 03:03 Glucose 105 mg/dL (70-99) H 03/23/17 03:03 POC Glucose 95 (58-89) H 03/22/17 20:28 Serum Osmolality 301 mOsm/kg (280-300) H 03/22/17 21:25 Calcium 8.1 mg/dL (8.6-10.8) L 03/23/17 03:03 Serum Total Protein 5.9 g/dL (6.0-8.3) L D 03/23/17 03:03 Albumin 3.3 g/dL (3.5-5.0) L D 03/23/17 03:03 Urine Clarity Cloudy (Clear) A 03/22/17 17:00 Urine Protein >=300 mg/dL (Neg-Trace) H 03/22/17 17:00 Urine Glucose (UA) 500 mg/dL (Normal) H 03/22/17 17:00 Urine Blood Moderate (Negative) H 03/22/17 17:00 Urine Microscopic RBC 5-15 per hpf (0-3) H 03/22/17 17:00 Urine Microscopic WBC 5-15 per hpf (0-3) H 03/22/17 17:00 Ur Squamous Epith Cells Many per lpf (None-Few) H 03/22/17 17:00 Hyaline Casts Moderate per lpf (None-Few) H 03/22/17 17:00 CSF Glucose 100 mg/dL (40-70) H 03/22/17 18:01 Salicylates < 5.0 mg/dL (15-30) L 03/22/17 16:47 Acetaminophen < 1.0 mcg/mL (10-30) L 03/22/17 16:47 U Benzodiazepines Scrn Positive ng/mL (Ufrqbo=[id number]) H 03/22/17 17:00 - Clinical Findings Intake & Output: Intake & Output 03/22/17 03/23/17 03/23/17 23:59 07:59 15:59 Intake Total 1450 / 2450 1180 / 1180 60 / 60 Output Total 1000 / 1000 300 / 300 200 / 200 Balance 450 / 1450 880 / 880 -140 / -140 Weight 61 kg - Attending Attestation I examined this patient and my medical decision-making was reviewed with the EUCLID OPERATOR/PA/Advanced Practice Nurse/Resident Physician. I agree with the documented findings, disposition and treatment plan as described except to the extent set forth below. Patient seen and examined. Labs, radiology, chart personally reviewed. 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 Patient has abnormal chest x-ray and suspect aspiration to be covered with antibiotics. Cardiovascular: stable GI: Nutrition per dietary and GI prophylaxis per routine Heme: DVT prophylaxis per routine ID: Continue antibiotic and plan to de-escalation Renal; urine out put and renal funtion reviewed Endorcine: blood glucose is monitored Lines: all lines checked and no evidence of infections Skin: skin care to prevent pressure ulcers per nursing routine care Patient denies any suicidal thoughts and advised to change lifestyle. Patient transferred to the floor.
[2017-03-23] MEDS ORDERED: Pantoprazole 40 MG VIAL IVPB SCH (09:00)
[2017-03-23] MEDS ORDERED: Lacri-Lube 3.5 GM TUBE BOTH EYES PRN (12:52)
[2017-03-23] MEDS ORDERED: Naloxone 0.4 MG/ML INJ IVP PRN (12:52)
[2017-03-23] MEDS: Acetaminophen 325 MG TABLET PO PRN (14:08)
[2017-03-23] MEDS: Ampicillin/Sulbactam 1,500 MG in 0.9 % Sodium Chloride Mini Bag 100 ML IVPB SCH ×2 (15:36→16:49)
[2017-03-23] MEDS: Ipratropium/Albuterol Neb 3 ML IH SCH ×3 (15:45→23:51)
[2017-03-23] MEDS ORDERED: Lacri-Lube 3.5 GM TUBE BOTH EYES SCH (16:00)
--- NOTE | 2017-03-23 18:16 | Electrocardiograph Report ---
[address] [place] [address] Test Date: 2017-03-22 Pat Name: Augustin Desai Department: 109 Room: [facility] Gender: M Saturation Diver: CAROL : 1990 Requested By: Matias Robertson Order Number: [id number] Reading MD: Kristy Cordero Measurements Intervals [place] Rate: 94 P: 58 W[place]: 136 QRS: -9 QRSD: 94 T: 69 QT: 355 QTc: 407 Interpretive Statements SINUS RHYTHM Electronically Signed On 03-23-2017 18:14:31 EDT by Kristy Cordero
[2017-03-24] MEDS: Ampicillin/Sulbactam 1,500 MG in 0.9 % Sodium Chloride Mini Bag 100 ML IVPB SCH ×4 (00:24→17:35)
[2017-03-24] MEDS: Acetaminophen 325 MG TABLET PO PRN ×4 (00:24→22:08)
[2017-03-24] MEDS: *HR* Heparin 5,000 UNIT/ML VIAL SQ SCH ×3 (00:24→14:44)
[2017-03-24] MEDS: Ipratropium/Albuterol Neb 3 ML IH SCH ×6 (03:55→23:16)
[2017-03-24 05:46] LABS: Basophils % 0.1 %; Eosinophils % 0.1 %; Hemoglobin 11.2 g/dL (12.9-16.9); Immature Granulocytes % 0.3 % (0-4); Lymphocytes # 2.1 K/mcL (0.6-4.6); Lymphocytes % 27.1 %; Mean Corpuscular Hemoglobin 28.9 pg (28.0-33.3); Mean Corpuscular Volume 82.7 fL (83.0-100.0); Mean Platelet Volume 11.8 fL (9.4-12.4); Monocytes # 0.4 K/mcL (0.0-1.3); Monocytes % 5.6 %; Neutrophils # 5.1 K/mcL (1.6-8.9); Platelet Count 129 K/mcL (140-400); Red Blood Count 3.87 M/mcL (4.19-5.50); Red Cell Distribution Width 12.5 % (11.5-14.5); Segmented Neutrophils % 66.8 %
[2017-03-24 06:02] LABS: BUN/Creatinine Ratio 8 (6-26); Blood Urea Nitrogen 6 mg/dL (8-26); Calcium 8.7 mg/dL (8.6-10.8); Carbon Dioxide 28 mEq/L (19-29); Chloride 106 mEq/L (98-109); Glucose 106 mg/dL (70-99); Osmolality,Calculated 294 (280-300); Potassium 2.7 mEq/L (3.5-4.5); Sodium 143 mEq/L (136-145); eGFR For African Americans > 60 (> 60); eGFR For Non-African Americans > 60 (> 60)
[2017-03-24] MEDS ORDERED: Potassium Chloride Elixir 20 MEQ/15 ML UDC PO ONE (08:08)
[2017-03-24] MEDS ORDERED: Potassium Chloride 20 MEQ, Lidocaine 1% 2 ML in D5% in Water 250 ML IVPB ONE (08:08)
[2017-03-24] MEDS ORDERED: *HR* Promethazine 25 MG/ML VIAL IVP PRN (15:06)
[2017-03-24] MEDS ORDERED: Ondansetron 4 MG/2 ML VIAL IVP PRN (15:06)
--- NOTE | 2017-03-24 15:15 | Internal Med Progress Note ---
Date of Encounter: 03/24/17 Time of Encounter: 13:30 - Assessment and plan (1) Overdose Current Visit: Yes Status: Acute Assessment and plan: Patient stating he overdosed on what he thinks was heroin. He was intubated and spent one night in the intensive care unit, extubated the next day and transferred to observation unit. Head CT negative. Chest x-ray with pulmonary vascular congestion. On examination, patient with fair aeration throughout and coarse crackles noted-chest CT ordered at this time. Given that he was unresponsive and intubated, concern for possible aspiration. Lumbar puncture unremarkable-CSF culture negative. Blood cultures negative. Leukocytosis resolved. Lactic acidosis resolved. Urinalysis negative. We will continue Unasyn. Patient now has blood-tinged sputum. Scant amount of pink sputum noted , will trend. No signs of active bleeding or airway compromise. Patient is alert and oriented 3 and his biggest complaint at this time is generalized body aches and headache. He denies any vision changes or gait abnormalities. Will add anti-emetics to his regimen. Chest CT pending, will observe overnight and possibly discharge tomorrow pending clinical outcomes. ITS Impressions Head CT 03/22/17 17:24 IMPRESSION: No acute intracranial abnormality. D/ / Jared Balderas MD / Jared Balderas MD Interpreting Provider: Jared Balderas MD Chest X-Ray 03/22/17 17:42 IMPRESSION: ET tube in satisfactory position. Mild pulmonary vascular congestion. D/ / Brian Moore MD / Brian Moore MD Interpreting Provider: Brian Moore MD X-Ray 03/22/17 20:09 IMPRESSION: Enteric tube side port at the level of the GE junction and advancement by approximately 5 cm recommended. D/ / Jared Balderas MD / Jared Balderas MD Interpreting Provider: Jared Balderas MD Chest X-Ray 03/22/17 20:37 IMPRESSION: Retraction of the endotracheal tube to the level of the thoracic inlet approximately 8.7 cm from the christian. Follow-up radiograph comparison does show advancement of the tube. D/ / Jared Balderas MD / Jared Balderas MD Interpreting Provider: Jared Balderas MD Chest X-Ray 03/22/17 20:37 IMPRESSION: 1. Endotracheal tube 2.6 cm above the christian. 2. Pulmonary vascular congestion. D/ / Prakash Sue MD / Prakash Sue MD Interpreting Provider: Prakash Sue MD X-Ray 03/22/17 20:37 IMPRESSION: Interval placement of enteric tube which appears appropriately position with side port and tip projecting over the expected position of the gastric body. D/ / Jared Balderas MD / Jared Balderas MD Interpreting Provider: Jared Balderas MD Chest X-Ray 03/24/17 06:00 IMPRESSION: 1. Interval extubation. 2. No acute cardiopulmonary process identified. D/ / Jesse Nolan MD / Jesse Nolan MD Interpreting Provider: Jesse Nolan MD Qualifiers: Encounter type: initial encounter Injury intent: undetermined intent Qualified Code(s): T50.904A - Poisoning by unspecified drugs, medicaments and biological substances, undetermined, initial encounter (2) Drug abuse Current Visit: No Status: Chronic (3) Mood disorder Current Visit: No Status: Chronic Assessment and plan: Mood and affect currently stable. Patient denies suicidal or homicidal ideations. He states he overdosed because he simply wanted to get high. He denies any suicidal attempts. He states he did attempt to hang himself approximately 3 years ago but has not had suicidal attempts since that time. (4) Lactic acidosis Current Visit: Yes Status: Resolved (5) DVT prophylaxis Current Visit: Yes Status: Acute Assessment and plan: Subcutaneous heparin (6) LORETTA (acute kidney injury) Current Visit: Yes Status: Resolved (7) Acute respiratory failure Current Visit: Yes Status: Resolved Assessment and plan: Patient is on room air and tolerating it well. However his breath sounds are coarse wheezing throughout with fair aeration. Chest x-ray unremarkable, will order chest CT. Given that he was unresponsive and required intubation, concern for aspiration. Qualifiers: Respiratory failure complication: hypoxia and hypercapnia Qualified Code(s) : J96.01 - Acute respiratory failure with hypoxia; J96.02 - Acute respiratory failure with hypercapnia (8) Leukocytosis Current Visit: Yes Status: Resolved (9) Hypokalemia Current Visit: Yes Status: Acute Assessment and plan: Potassium dropped to 2.7 today. By mouth and IV potassium, will recheck an trend. We will check magnesium as well. (10) Thrombocytopenia Current Visit: Yes Status: Acute Assessment and plan: mild, will trend. holding Heparin. No signs of active bleeding- scant amount of pink-tinged sputum more consistent with airway irritation 2/2 intubation. Ampicillin in the Unasyn could also be contributing. No signs of sepsis- will monitor and trend - Subjective Interval history: Patient seen and examined. On examination, patient sitting upright in bed conversing with his mother. He denies shortness of breath at this time. He is concerned that he is coughing out blood. He states he has not been able to eat very much secondary to severe headache, sore throat, and generalized body aches. - Constitutional Vitals: Temp Pulse Resp BP Pulse Ox 98.1 F 98 18 101/66 99 03/24/17 10:56 03/24/17 10:56 03/24/17 11:25 03/24/17 10:56 03/24/17 11:25 General appearance: Present: A&O X 3, pleasant, no acute distress, answers questions appropriately - Head Head exam: Present: atraumatic, normocephalic - Eye Eye exam: Present: PERRL, conjuntiva pink, sclera anicteric Pupils: Present: PERRL - Neck Neck exam general surgery: Present: supple, trachea midline. Absent: lymphadenopathy - Respiratory Respiratory exam: Present: decreased breath sounds, rhonchi, wheezes. Absent: accessory muscle use, rales, respiratory distress - Cardiovascular Cardiovascular exam: Present: RRR, +S1, +S2. Absent: diastolic murmur, gallop, rubs, systolic murmur - GI/Abdominal GI/Abdominal exam: Present: normal bowel sounds, soft, no peritoneal signs. Absent: distended, tenderness - Extremities Exam Extremities exam: Present: warm, radial pulses palpable and symetrical. Absent : calf tenderness, cyanotic, pedal edema - Neurological Exam Neurological exam: Present: alert, CN II-XII intact, oriented X3, no focal deficits, strengths equal and symetr throughout. Absent: pronater drift, facial droop, speech deficit - Skin Skin exam: Present: dry, intact, pallor, warm Internal Medicine: Result - Labs CBC & Chem 7: 03/24/17 05:09 03/24/17 05:09 Labs: Short CBC 03/24/17 Range/Units 05:09 WBC 7.6 (4.3-11.1) K/mcL Hgb 11.2 L (12.9-16.9) g/dL Hct 32.0 L (37.5-50.1) % Plt Count 129 L (140-400) K/mcL Neutrophils # 5.1 (1.6-8.9) K/mcL BMP 03/24/17 05:09 Sodium 143 Potassium 2.7 L Chloride 106 Carbon Dioxide 28 BUN 6 L Creatinine 0.77 Glucose 106 H Calcium 8.7 - ABG Interpretation ABG results: ABG ABG pH 7.38 pH Units (7.32-7.45) 03/23/17 04:30 ABG pCO2 47 mmHg (35-45) H 03/23/17 04:30 ABG pO2 153 mmHg (85-104) H 03/23/17 04:30 ABG O2 Saturation 99 % (95-98) H 03/23/17 04:30 - Impressions Impressions Chest X-Ray 03/24/17 06:00 IMPRESSION: 1. Interval extubation. 2. No acute cardiopulmonary process identified. D/ / Jesse Nolan MD / Jesse Nolan MD Interpreting Provider: Jesse Nolan MD Consult Discharge Plan - Plan Referrals: NO,PCP [Primary Care Provider] -
[2017-03-25] MEDS: *HR* Heparin 5,000 UNIT/ML VIAL SQ SCH ×2 (00:44→08:25)
[2017-03-25] MEDS: Ampicillin/Sulbactam 1,500 MG in 0.9 % Sodium Chloride Mini Bag 100 ML IVPB SCH ×2 (00:44→06:01)
[2017-03-25 03:51] LABS: Basophils % 0.4 %; Eosinophils # 0.1 K/mcL (0.0-0.6); Eosinophils % 0.9 %; Hematocrit 32.4 % (37.5-50.1); Hemoglobin 11.3 g/dL (12.9-16.9); Immature Granulocytes % 0.2 % (0-4); Lymphocytes # 1.8 K/mcL (0.6-4.6); Lymphocytes % 32.5 %; Mean Corpuscular HGB Conc 34.9 g/dL (31.6-35.5); Mean Corpuscular Hemoglobin 28.9 pg (28.0-33.3); Mean Corpuscular Volume 82.9 fL (83.0-100.0); Mean Platelet Volume 11.7 fL (9.4-12.4); Monocytes # 0.4 K/mcL (0.0-1.3); Monocytes % 7.1 %; Neutrophils # 3.3 K/mcL (1.6-8.9); Platelet Count 134 K/mcL (140-400); Red Blood Count 3.91 M/mcL (4.19-5.50); Red Cell Distribution Width 12.5 % (11.5-14.5); Segmented Neutrophils % 58.9 %
[2017-03-25 04:05] LABS: BUN/Creatinine Ratio 8 (6-26); Blood Urea Nitrogen 6 mg/dL (8-26); Calcium 9.2 mg/dL (8.6-10.8); Carbon Dioxide 30 mEq/L (19-29); Chloride 108 mEq/L (98-109); Glucose 106 mg/dL (70-99); Magnesium 1.9 mg/dL (1.6-2.6); Osmolality,Calculated 294 (280-300); Potassium 3.3 mEq/L (3.5-4.5); Sodium 143 mEq/L (136-145); eGFR For African Americans > 60 (> 60); eGFR For Non-African Americans > 60 (> 60)
[2017-03-25] MEDS: Ipratropium/Albuterol Neb 3 ML IH SCH ×3 (04:32→11:00)
--- NOTE | 2017-03-25 09:34 | Discharge Summary ---
Date of Encounter: 03/25/17 Time of Encounter: 08:45 - Discharge Diagnosis (1) Overdose Priority: Primary Status: Acute Comments: Resolved. Patient denied suicidal ideations and stated he was snorting heroin to get high. He was given resources by social work. 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 Qualifiers: Encounter type: initial encounter Injury intent: undetermined intent Qualified Code(s): T50.904A - Poisoning by unspecified drugs, medicaments and biological substances, undetermined, initial encounter (2) Drug abuse Priority: Secondary Status: Chronic (3) Mood disorder Priority: Secondary Status: Chronic Comments: Mood and affect currently stable. Patient denies suicidal or homicidal ideations. He states he overdosed because he simply wanted to get high. He denies any suicidal attempts. He states he did attempt to hang himself approximately 3 years ago but has not had suicidal attempts since that time. (4) Lactic acidosis Priority: Primary Status: Resolved (5) DVT prophylaxis Priority: Primary Status: Acute Comments: Subcutaneous heparin while admitted (6) LORETTA (acute kidney injury) Priority: Primary Status: Resolved (7) Acute respiratory failure Priority: Primary Status: Resolved Qualifiers: Respiratory failure complication: hypoxia and hypercapnia Qualified Code(s) : J96.01 - Acute respiratory failure with hypoxia; J96.02 - Acute respiratory failure with hypercapnia (8) Leukocytosis Priority: Primary Status: Resolved (9) Hypokalemia Priority: Primary Status: Acute Comments: Nearly resolved prior to discharge, follow-up outpatient (10) Thrombocytopenia Priority: Primary Status: Acute Comments: mild and trended back up. No signs of active bleeding- scant amount of pink- tinged sputum more consistent with airway irritation 2/2 intubation. Ampicillin in the Unasyn could also be contributing. No signs of sepsis - Discharge Medications Prescriptions: Albuterol Sulfate [Albuterol Inhaler] 2 puff IH Q4HR PRN #1 hfa.aer.ad PRN Reason: Shortness Of Breath Promethazine [Phenergan] 12.5 mg PO Q6HR PRN #15 tablet PRN Reason: Nausea And Vomiting Acetaminophen [8 Hour] 650 mg PO Q8H PRN #20 tablet.er PRN Reason: Pain Clindamycin HCl 300 mg PO TID #21 capsule Guaifenesin [Mucinex] 600 mg PO BID #10 tab.er.12h predniSONE [PredniSONE] 40 mg PO DAILY #10 tablet Home Medications: Ibuprofen [Motrin] 200 - 400 mg PO Q4HR PRN 03/23/17 [History] Acetaminophen [8 Hour] 650 mg PO Q8H PRN #20 tablet.er 03/25/17 [Rx] Albuterol Sulfate [Albuterol Inhaler] 2 puff IH Q4HR PRN #1 hfa.aer.ad 03/25/17 [Rx] Clindamycin HCl 300 mg PO TID #21 capsule 03/25/17 [Rx] Guaifenesin [Mucinex] 600 mg PO BID #10 tab.er.12h 03/25/17 [Rx] Promethazine [Phenergan] 12.5 mg PO Q6HR PRN #15 tablet 03/25/17 [Rx] predniSONE [PredniSONE] 40 mg PO DAILY #10 tablet 03/25/17 [Rx] Allergies/Adverse Reactions: Allergies No Known Allergies Allergy (Verified 01/31/17 17:52) Procedures/tests Complete & Pending: Procedures Performed prior 72 hours Category Date Time Status CT chest w con [CT] Routine Cat Scan 03/24/17 15:05 Draft EKG [ECG 12 lead ECG] [ECG] Routine Y 03/22/17 21:03 Completed Date of admission: 03/22/17 19:51 Primary care physician: PCP NO Consults: 03/22/17 19:52 Consult to Pulmonology [CONS] Routine Consulting Provider: [facility] Reason for Consult: Overdose Call Completed: Yes 03/24/17 12:09 Consult to [facility] [CONS] Routine Reason for SW Consult: Pt is requesting rehab information for current drug use. Discharging clinician: Willow Chopra Anticipated date of discharge: 03/25/17 - Patient Status Disposition: Home, Self-Care Condition: Fair Functional capacity at discharge: independent ambulation Overall status at discharge: patient is progressing back to baseline - Discharge Instructions Follow Up With: NO,PCP [Primary Care Provider] - Additional Instructions: Please follow-up with primary care provider in one to 2 weeks - Diet and Activity Activity: increase activity as tolerated Diet: regular diet Hospital course: Mr. Desai is a 26 year old male with past medical history of migraines, drug abuse. Patient presented to the emergency department chief complaint of overdose. Patient was sedated and intubated in the emergency department as he was extremely agitated. Per ER report, patient was brought in with another overdose patient after he had snorted what he believed to be here when. EMS gave him 6 mg of Narcan at which time he became extremely agitated. He remained significantly agitated upon presentation she was sedated and intubated for patient and staff safety. Patient was transferred to the intensive care unit and monitored overnight. He was treated with Unasyn. Head CT negative. Initial chest x-ray with pulmonary vascular congestion. A lumbar puncture was performed and the CSF cultures were negative. Blood cultures also negative. He was then extubated the following day and transferred to the observation unit. His initial lactic acidosis, acute kidney injury, and leukocytosis all resolved. Urinalysis negative for signs of infection. Once he was transferred to the observation unit, he remained alert and oriented 3 throughout the rest of his 3 night admission. He was also weaned to room air and tolerated it well. He did have diffuse coarse crackles noted throughout so a chest CT was obtained which was consistent with mild aspiration pneumonitis. Regarding his overdose, patient denied suicidal ideation. He states he started he wanted to get high. 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 He states that he plans to stop using drugs. He was given resources per social media senior associate. He was able to tolerate a regular diet while admitted. He was sent home with a brief 5 day course of prednisone, Phenergan, clindamycin for possible early aspiration pneumonia, and Tylenol for pain. While admitted, he had coarse wheezing throughout and was treated with duo nebs every 4 hours, he was sent home with an albuterol inhaler. He is a nonsmoker/never smoker and his adventitious breath sounds greatly improved on day of discharge. He was discharged home in stable condition with close outpatient follow-up recommended. ITS Impressions Head CT 03/22/17 17:24 IMPRESSION: No acute intracranial abnormality. D/ / Jared Balderas MD / Jared Balderas MD Interpreting Provider: Jared Balderas MD Chest X-Ray 03/22/17 17:42 IMPRESSION: ET tube in satisfactory position. Mild pulmonary vascular congestion. D/ / Brian Moore MD / Brian Moore MD Interpreting Provider: Brian Moore MD X-Ray 03/22/17 20:09 IMPRESSION: Enteric tube side port at the level of the GE junction and advancement by approximately 5 cm recommended. D/ / Jared Balderas MD / Jared Balderas MD Interpreting Provider: Jared Balderas MD Chest X-Ray 03/22/17 20:37 IMPRESSION: Retraction of the endotracheal tube to the level of the thoracic inlet approximately 8.7 cm from the christian. Follow-up radiograph comparison does show advancement of the tube. D/ / Jared Balderas MD / Jared Balderas MD Interpreting Provider: Jared Balderas MD Chest X-Ray 03/22/17 20:37 IMPRESSION: 1. Endotracheal tube 2.6 cm above the christian. 2. Pulmonary vascular congestion. D/ / Prakash Sue MD / Prakash Sue MD Interpreting Provider: Prakash Sue MD X-Ray 03/22/17 20:37 IMPRESSION: Interval placement of enteric tube which appears appropriately position with side port and tip projecting over the expected position of the gastric body. D/ / Jared Balderas MD / Jared Balderas MD Interpreting Provider: Jared Balderas MD Chest X-Ray 03/24/17 06:00 IMPRESSION: 1. Interval extubation. 2. No acute cardiopulmonary process identified. D/ / Jesse Nolan MD / Jesse Nolan MD Interpreting Provider: Jesse Nolan MD Chest CT 03/24/17 15:05 IMPRESSION: Minimal nodular ground-glass opacity at the medial lower lobes may reflect mild aspiration pneumonitis. No consolidation to suggest bacterial pneumonia. D/ / 03/24/2017 20:49:18 Dakota Paul MD / melba Interpreting Provider: Dakota Paul MD - Time Spent with Patient Total time spent providing and/or coordinating discharge services: - Constitutional Vitals: Temp Pulse Resp BP Pulse Ox 98.4 F 66 16 83/45 97 03/25/17 07:07 03/25/17 07:07 03/25/17 07:45 03/25/17 07:07 03/25/17 07:45 General appearance: Present: A&O X 3, pleasant, no acute distress, answers questions appropriately - Head Head exam: Present: atraumatic, normocephalic - Eye Eye exam: Present: PERRL, conjuntiva pink, sclera anicteric Pupils: Present: PERRL - Neck Neck exam general surgery: Present: supple, trachea midline. Absent: lymphadenopathy - Respiratory Respiratory exam: Present: CTAB, wheezes (few, scattered; good aeration). Absent: accessory muscle use, rales, respiratory distress, rhonchi - Cardiovascular Cardiovascular exam: Present: RRR, +S1, +S2. Absent: diastolic murmur, gallop, rubs, systolic murmur - GI/Abdominal GI/Abdominal exam: Present: normal bowel sounds, soft, no peritoneal signs. Absent: distended, tenderness - Extremities Exam Extremities exam: Present: warm, radial pulses palpable and symetrical. Absent : calf tenderness, cyanotic, pedal edema - Neurological Exam Neurological exam: Present: alert, CN II-XII intact, oriented X3, no focal deficits, strengths equal and symetr throughout. Absent: pronater drift, facial droop, speech deficit - Skin Skin exam: Present: dry, intact, pallor, warm
[2017-03-25 11:48] VITALS: BP 115/71
[2017-03-25 14:12] LABS: HSV Source CSF
== END 2017-03-25 12:40 | disposition home or self-care (01) | DRG 951 ==
LOC: ICNU 16:22 → EMEROO 16:22 → SUATTDRO 19:51 → ICNU 20:31 → 3BNU 03-23 15:26
PROVIDERS: ADMIT Internal Medicine; ATTEND Nurse Practitioner Family

== ENCOUNTER 2017-04-07 22:19 | Inpatient (IN) ==
--- NOTE | 2017-04-07 22:22 | Emergency Department Note ---
Disposition Clinical Impression: Suicide attempt by substance overdose, Pneumonia Disposition: Admitted As Inpatient Condition: Undetermined General Adult HPI - General Chief complaint: ED Overdose Stated complaint: OD Time Seen by Provider: 04/07/17 22:20 - Related Data Home Medications Medication Instructions Recorded Confirmed Ibuprofen [Motrin] 200 - 400 mg PO Q4HR PRN 03/23/17 03/23/17 Previous Rx's Medication Instructions Recorded Acetaminophen [8 Hour] 650 mg PO Q8H PRN #20 tablet.er 03/25/17 Albuterol Sulfate [Albuterol 2 puff IH Q4HR PRN #1 hfa.aer.ad 03/25/17 Inhaler] Clindamycin HCl 300 mg PO TID #21 capsule 03/25/17 Guaifenesin [Mucinex] 600 mg PO BID #10 tab.er.12h 03/25/17 Promethazine [Phenergan] 12.5 mg PO Q6HR PRN #15 tablet 03/25/17 predniSONE [PredniSONE] 40 mg PO DAILY #10 tablet 03/25/17 Allergies Allergy/AdvReac Type Severity Reaction Status Date / Time No Known Allergies Allergy Verified 01/31/17 17:52 Past Medical History - Past Medical History Medical history: Reports: migraine Surgical history: Reports: no surgical history Psychiatric history: Reports: anxiety, depression - Social History Smoking Status: Never smoker Smokeless Tobacco Status: No Alcohol use: Reports: rarely Drug use: Reports: cocaine, opiates Course Vital Signs Temperature 98.1 F 04/07/17 22:20 Pulse Rate 119 04/07/17 22:20 Respiratory Rate 16 04/07/17 22:20 Blood Pressure 116/82 04/07/17 22:20 O2 Sat by Pulse Oximetry 92 04/07/17 22:20 Temperature 98.1 F 04/07/17 22:20 Pulse Rate 119 04/07/17 22:20 Respiratory Rate 16 04/07/17 22:20 Blood Pressure 116/82 04/07/17 22:20 O2 Sat by Pulse Oximetry 91 04/07/17 22:48 Oxygen Delivery Oxygen Delivery Room Air Medical Decision Making - Lab Data Result diagrams: 04/07/17 23:40 04/07/17 23:40 Lab Results 04/07/17 04/07/17 04/08/17 Range/Units 23:40 23:40 00:18 WBC 14.7 H (4.3-11.1) K/mcL RBC 4.51 (4.19-5.50) M/mcL Hgb 13.0 (12.9-16.9) g/dL Hct 38.3 (37.5-50.1) % MCV 84.9 (83.0-100.0) fL MCH 28.8 (28.0-33.3) pg MCHC 33.9 (31.6-35.5) g/dL RDW 13.3 (11.5-14.5) % Plt Count 224 (140-400) K/mcL MPV 10.9 (9.4-12.4) fL Immature Gran % 0.3 (0-4) % Seg Neutrophils % 86.8 % Lymphocytes % 7.0 % Monocytes % 5.8 % Eosinophils % 0.0 % Basophils % 0.1 % Neutrophils # 12.8 H (1.6-8.9) K/mcL Lymphocytes # 1.0 (0.6-4.6) K/mcL Monocytes # 0.9 (0.0-1.3) K/mcL Eosinophils # 0.0 (0.0-0.6) K/mcL Basophils # 0.0 (0.0-0.2) K/mcL Immature Plt Fraction 7.0 H (1.1-6.1) % Sodium 141 (136-145) mEq/L Potassium 3.9 (3.5-4.5) mEq/L Chloride 105 (98-109) mEq/L Carbon Dioxide 28 (19-29) mEq/L BUN 9 (8-26) mg/dL Creatinine 0.95 (0.72-1.25) mg/dL Est GFR ( Amer) > 60 (> 60) Est GFR (Non-Af Amer) > 60 (> 60) BUN/Creatinine Ratio 9 (6-26) Glucose 103 H (70-99) mg/dL Calculated Osmolality 291 (280-300) Calcium 9.3 (8.6-10.8) mg/dL Total Bilirubin 0.6 (0.2-1.2) mg/dL Direct Bilirubin 0.2 (0.0-0.5) mg/dL Indirect Bilirubin 0.4 (0.0-1.2) mg/dL AST 23 (5-34) Units/L ALT 16 (0-55) Units/L Alkaline Phosphatase 56 (38-126) Units/L Serum Total Protein 7.2 (6.0-8.3) g/dL Albumin 4.2 (3.5-5.0) g/dL Globulin 3.0 (2.4-3.5) g/dL Albumin/Globulin Ratio 1.4 (1.1-2.2) Salicylates < 5.0 L (15-30) mg/dL Urine Opiates Screen Negative (Johpkm=147) ng/mL Acetaminophen < 1.0 L (10-30) mcg/mL Ur Barbiturates Screen Negative (Ownlkg=281) ng/mL Ur Phencyclidine Scrn Negative (Cutoff=25) ng/mL Ur Amphetamines Screen Negative (Wkajgp=5032) ng/mL U Benzodiazepines Scrn Positive H (Ufjfyn=721) ng/mL Urine Cocaine Screen Negative (Cutoff= 300) ng/mL U Marijuana (THC) Screen Negative (Cutoff = 50) ng/mL Ethyl Alcohol < 10 (0-10) mg/dL Critical Care Time Critical Care Time: Yes Total Critical Care Time: 30 Attestation: She presented after an overdose. He became hypoxic when not on supplemental oxygen. Portable chest x-ray shows pneumonia. Antibiotics for healthcare associated pneumonia initiated. Patient is later apologetic and contrite prior to admission Attestation Statement - Attestation Attestation: I examined this patient and my medical decision-making was reviewed with the STRUCTURAL STEEL PAINTER/PA/Advanced Practice Nurse/Resident Physician. I agree with the documented findings, disposition and treatment plan as described except to the extent set forth below. Vbem-li-[id number] time provided Patient presents after an opiate overdose. He admits to snorting heroin. Narcan administered prehospital. Patient is slow to answer questions but alert and lucid. He does admit to suicidal ideation 01:11: The patient was cleared medically for behavioral evaluation. Thereafter , however, he became hypoxic. A portable chest x-ray was obtained which shows patchy infiltrates. I therefore had to cancel the 1A consultation. He will be admitted
--- NOTE | 2017-04-07 22:23 | Emergency Department Note ---
Overdose - [facility] Narrative Medical decision making narrative: After the chest x-ray and the patient performed for patient's hypoxia, it appears he has a left lower lobe infiltrate. With the patient's recent admission and intubation in the ICU we will administer Rocephin and the mycin with concern for possible hospital-acquired pneumonia. The patient is mildly tachycardic, hypoxic, coughing with a leukocytosis. This does not appear consistent with septic emboli although it is on the differential. The patient is resting comfortably at this time on 2 L nasal cannula. We discussed the case with the hospitalist who accepts the patient with request to 2 N. - Differential Diagnosis Likely: intentional overdose - Lab Data Lab results reviewed: Yes I reviewed the patient's lab results. Result diagrams: 04/07/17 23:40 04/07/17 23:40 Lab Results 04/07/17 04/07/17 04/08/17 Range/Units 23:40 23:40 00:18 WBC 14.7 H (4.3-11.1) K/mcL RBC 4.51 (4.19-5.50) M/mcL Hgb 13.0 (12.9-16.9) g/dL Hct 38.3 (37.5-50.1) % MCV 84.9 (83.0-100.0) fL MCH 28.8 (28.0-33.3) pg MCHC 33.9 (31.6-35.5) g/dL RDW 13.3 (11.5-14.5) % Plt Count 224 (140-400) K/mcL MPV 10.9 (9.4-12.4) fL Immature Gran % 0.3 (0-4) % Seg Neutrophils % 86.8 % Lymphocytes % 7.0 % Monocytes % 5.8 % Eosinophils % 0.0 % Basophils % 0.1 % Neutrophils # 12.8 H (1.6-8.9) K/mcL Lymphocytes # 1.0 (0.6-4.6) K/mcL Monocytes # 0.9 (0.0-1.3) K/mcL Eosinophils # 0.0 (0.0-0.6) K/mcL Basophils # 0.0 (0.0-0.2) K/mcL Immature Plt Fraction 7.0 H (1.1-6.1) % Sodium 141 (136-145) mEq/L Potassium 3.9 (3.5-4.5) mEq/L Chloride 105 (98-109) mEq/L Carbon Dioxide 28 (19-29) mEq/L BUN 9 (8-26) mg/dL Creatinine 0.95 (0.72-1.25) mg/dL Est GFR ( Amer) > 60 (> 60) Est GFR (Non-Af Amer) > 60 (> 60) BUN/Creatinine Ratio 9 (6-26) Glucose 103 H (70-99) mg/dL Calculated Osmolality 291 (280-300) Calcium 9.3 (8.6-10.8) mg/dL Total Bilirubin 0.6 (0.2-1.2) mg/dL Direct Bilirubin 0.2 (0.0-0.5) mg/dL Indirect Bilirubin 0.4 (0.0-1.2) mg/dL AST 23 (5-34) Units/L ALT 16 (0-55) Units/L Alkaline Phosphatase 56 (38-126) Units/L Serum Total Protein 7.2 (6.0-8.3) g/dL Albumin 4.2 (3.5-5.0) g/dL Globulin 3.0 (2.4-3.5) g/dL Albumin/Globulin Ratio 1.4 (1.1-2.2) Salicylates < 5.0 L (15-30) mg/dL Urine Opiates Screen Negative (Jyfqrr=110) ng/mL Acetaminophen < 1.0 L (10-30) mcg/mL Ur Barbiturates Screen Negative (Ctdjnw=495) ng/mL Ur Phencyclidine Scrn Negative (Cutoff=25) ng/mL Ur Amphetamines Screen Negative (Frabuf=1572) ng/mL U Benzodiazepines Scrn Positive H (Qwwtoa=977) ng/mL Urine Cocaine Screen Negative (Cutoff= 300) ng/mL U Marijuana (THC) Screen Negative (Cutoff = 50) ng/mL Ethyl Alcohol < 10 (0-10) mg/dL - Radiology Data Radiology results reviewed: Yes I reviewed the patient's radiology results. - EKG Data EKG attestation: Yes I reviewed and interpreted this EKG. EKG results narrative: Heart rate 1 16 bpm. CO interval 133 ms. QTC 373 ms. Normal axis. Sinus tachycardia. No ST elevation or ST depression noted. EKG similar to the EKG performed on 03/22/2017. New tachycardia. No other changes noted. Overdose HPI - General Chief Complaint: ED Overdose Stated Complaint: OD Time Seen by Provider: 04/07/17 22:20 Source: patient Mode of arrival: EMS Limitations: no limitations Nursing Notes Reviewed: Yes Vital Signs Reviewed: Yes - History of Present Illness HPI Narrative: 26-year-old male arrives [facility] emergency department as a heroin overdose. Family administered 4 mg of intranasal Narcan. EMS arrived and the patient was starting to come around. Family noted that he was blue around the face. The patient states he had a previous overdose 2 weeks ago where he was intubated and placed in the ICU. In addition the patient states that he did attempt to hurt himself. Patient denies any other complaints at this time. 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 confirmed by: family member Intent: suicide attempt Associated symptoms: depression Treatments Prior to Arrival: oxygen, narcan - Related Data Home Medications Medication Instructions Recorded Confirmed Ibuprofen [Motrin] 200 - 400 mg PO Q4HR PRN 03/23/17 03/23/17 Previous Rx's Medication Instructions Recorded Acetaminophen [8 Hour] 650 mg PO Q8H PRN #20 tablet.er 03/25/17 Albuterol Sulfate [Albuterol 2 puff IH Q4HR PRN #1 hfa.aer.ad 03/25/17 Inhaler] Clindamycin HCl 300 mg PO TID #21 capsule 03/25/17 Guaifenesin [Mucinex] 600 mg PO BID #10 tab.er.12h 03/25/17 Promethazine [Phenergan] 12.5 mg PO Q6HR PRN #15 tablet 03/25/17 predniSONE [PredniSONE] 40 mg PO DAILY #10 tablet 03/25/17 Allergies Allergy/AdvReac Type Severity Reaction Status Date / Time No Known Allergies Allergy Verified 01/31/17 17:52 All systems ED: reviewed and negative except as stated. Constitutional: Denies: fever, chills, weakness, weight change Eyes: Denies: eye pain, eye discharge, vision change ENT ED: Denies: ear pain, throat pain, dental pain, hearing loss, epistaxis, congestion, dysphagia Cardiovascular: Denies: chest pain, palpitations, dyspnea on exertion, edema, syncope Respiratory: Denies: cough, dyspnea, wheezes, hemoptysis, stridor Gastrointestinal: Denies: abdominal pain, nausea, vomiting, diarrhea, constipation, hematemesis, melena, hematochezia Genitourinary: Denies: urgency, dysuria, frequency, hematuria Musculoskeletal: Denies: back pain, neck pain, arthralgia, myalgia Integumentary: Denies: rash, abrasion, lesions Neurological: Denies: headache, weakness, numbness, paresthesias, confusion, abnormal gait, vertigo Psychiatric: Reports: depression, suicidal thoughts. Denies: anxiety, homicidal thoughts, auditory hallucinations, visual hallucinations Past Medical History - Past Medical History Attestation: Yes The following information was validated with the patient. Source: patient Medical history: Reports: migraine Surgical history: Reports: no surgical history Psychiatric history: Reports: anxiety, depression - Social History Smoking Status: Never smoker Smokeless Tobacco Status: No Alcohol use: Reports: rarely Drug use: Reports: cocaine, opiates Physical Exam Physical Exam: General: Patient alert, no acute distress, not lethargic, patient is slow to answer questions. HEENT: Head normal inspection, atraumatic, PERRLA, oropharynx grossly intact and normal, trachea midline, no JVD Chest: Nontraumatic, nontender, normal chest rise CV: RRR with no murmurs, rubs, gallops Respiratory: Lungs clear to auscultation bilaterally, no rales, rhonchi, wheezes. Abdomen: Normal inspection, Normal bowel sounds 4 quadrants, nontender to palpation : Patient deferred Extremities: Normal inspection, full range of motion, appropriate pulses, capillary refill under 2 seconds Neurological: Patient alert and oriented 3, cranial nerves II through XII grossly intact, GCS 15 Skin: Warm, intact, no rashes noted Course Course Narrative: 0034: 1A consulted and will be seen. Vital Signs Temperature 98.1 F 04/07/17 22:20 Pulse Rate 119 04/07/17 22:20 Respiratory Rate 16 04/07/17 22:20 Blood Pressure 116/82 04/07/17 22:20 O2 Sat by Pulse Oximetry 92 04/07/17 22:20 Temperature 98.1 F 04/07/17 22:20 Pulse Rate 119 04/07/17 22:20 Respiratory Rate 16 04/07/17 22:20 Blood Pressure 116/82 04/07/17 22:20 O2 Sat by Pulse Oximetry 91 04/07/17 22:48 Oxygen Delivery Oxygen Delivery Room Air Disposition Clinical Impression: Suicide attempt by substance overdose Qualifiers: Encounter type: initial encounter Qualified Code(s): T65.92XA - Toxic effect of unspecified substance, intentional self-harm, initial encounter Pneumonia Qualifiers: Pneumonia type: due to unspecified organism Laterality: left Lung location: lower lobe of lung Qualified Code(s): J18.1 - Lobar pneumonia, unspecified organism Disposition: Admitted As Inpatient Condition: Undetermined Referrals: NO,PCP [Primary Care Provider] - Forms: ED Satisfaction Letter Time of Disposition: 01:18
[2017-04-07 23:46] LABS: Basophils % 0.1 %; Hematocrit 38.3 % (37.5-50.1); Immature Granulocytes % 0.3 % (0-4); Mean Corpuscular HGB Conc 33.9 g/dL (31.6-35.5); Mean Corpuscular Hemoglobin 28.8 pg (28.0-33.3); Mean Corpuscular Volume 84.9 fL (83.0-100.0); Mean Platelet Volume 10.9 fL (9.4-12.4); Monocytes # 0.9 K/mcL (0.0-1.3); Monocytes % 5.8 %; Neutrophils # 12.8 K/mcL (1.6-8.9); Platelet Count 224 K/mcL (140-400); Red Blood Count 4.51 M/mcL (4.19-5.50); Red Cell Distribution Width 13.3 % (11.5-14.5); Segmented Neutrophils % 86.8 %
[2017-04-08 00:01] LABS: Alanine Aminotransferase 16 Units/L (0-55); Albumin 4.2 g/dL (3.5-5.0); Albumin/Globulin Ratio 1.4 (1.1-2.2); Alkaline Phosphatase 56 Units/L (38-126); Aspartate Amino Transferase 23 Units/L (5-34); BUN/Creatinine Ratio 9 (6-26); Bilirubin,Direct 0.2 mg/dL (0.0-0.5); Bilirubin,Indirect 0.4 mg/dL (0.0-1.2); Bilirubin,Total 0.6 mg/dL (0.2-1.2); Blood Urea Nitrogen 9 mg/dL (8-26); Calcium 9.3 mg/dL (8.6-10.8); Carbon Dioxide 28 mEq/L (19-29); Chloride 105 mEq/L (98-109); Glucose 103 mg/dL (70-99); Osmolality,Calculated 291 (280-300); Potassium 3.9 mEq/L (3.5-4.5); Sodium 141 mEq/L (136-145); Total Protein 7.2 g/dL (6.0-8.3); eGFR For African Americans > 60 (> 60); eGFR For Non-African Americans > 60 (> 60)
[2017-04-08 00:24] LABS: Acetaminophen < 1.0 mcg/mL (10-30); Ethanol < 10 mg/dL (0-10); Salicylate < 5.0 mg/dL (15-30)
[2017-04-08 00:32] LABS: Amphetamine Screen,Urine Negative ng/mL (Cutoff=1000); Barbiturate Screen,Urine Negative ng/mL (Cutoff=200); Benzodiazepines Screen,Urine Positive ng/mL (Cutoff=200); Cannabinoid Screen,Urine Negative ng/mL (Cutoff = 50); Cocaine Screen,Urine Negative ng/mL (Cutoff= 300); Opiate Screen,Urine Negative ng/mL (Cutoff=300); Phencyclidine Screen,Urine Negative ng/mL (Cutoff=25)
[2017-04-08] MEDS ORDERED: Vancomycin 1,000 MG in D5% in Water 250 ML IVPB ONE (01:12)
[2017-04-08] MEDS ORDERED: Levofloxacin 500 MG/100 ML 500 MG/100 ML BAG IVPB ONE (01:12)
[2017-04-08] MEDS ORDERED: Piperacillin/Tazobactam 3.375 GM in D5% in Water (Mini-Bag+) 100 ML IVPB ONE (01:12)
--- NOTE | 2017-04-08 03:13 | Internal Med History&Physical ---
Date of Encounter: 04/08/17 Time of Encounter: 03:08 Assessment and Plan (1) HCAP (healthcare-associated pneumonia) Current visit: Yes Status: Acute vancomycin and Zosyn. Sputum abd blood cultures. (2) Overdose Current visit: No Status: Acute mentions that he takes heroin by snorting. Sitter will present at that site. Psychiatry evaluation once medically clear. Qualifiers: Encounter type: initial encounter Injury intent: undetermined intent Qualified Code(s): T50.904A - Poisoning by unspecified drugs, medicaments and biological substances, undetermined, initial encounter (3) Acute respiratory failure with hypoxia Current visit: Yes Status: Acute due to recent healthcare associated pneumonia. Patient currently requiring 5 L nasal oxygen Internal Medicine - H&P: HPI Chief complaint: overdose History of present illness: Mr. Desai is a 26 year old male with history of heroin abuse presents emergency room today after an overdose. Patient mentioned that he took an excessive dose of heroin and was found by his family unresponsive and cyanotic. Family gave the patient 4 mg of Narcan with improvement of his respiratory statusnd level of alertness. Patient is alert oriented times 3 and emergency room. He mentioned that for the past few days he is still been coughing greenish sputum. e is more short of breath than usual has been requiring 5 L of oxygen and emergency room to maintain his oxygen saturation above 90%.he had just completed a course of clindamycin for pneumonia 3 days ago. Past Med Surg Social Fam HX - Past Medical History Medical history: migraine Psychiatric history: anxiety, depression - Past Surgical History Surgical History: no surgical history - Social History Smoking Status: Never smoker Smokeless Tobacco Status: No Alcohol use: rarely Drug use: cocaine, opiates - Family History Mother Living Status: Still Living Father Living Status: Internal Medicine - H&P: Meds Ibuprofen [Motrin] 200 - 400 mg PO Q4HR PRN 03/23/17 [History] Acetaminophen [8 Hour] 650 mg PO Q8H PRN #20 tablet.er 03/25/17 [Rx] Albuterol Sulfate [Albuterol Inhaler] 2 puff IH Q4HR PRN #1 hfa.aer.ad 03/25/17 [Rx] Clindamycin HCl 300 mg PO TID #21 capsule 03/25/17 [Rx] Guaifenesin [Mucinex] 600 mg PO BID #10 tab.er.12h 03/25/17 [Rx] Promethazine [Phenergan] 12.5 mg PO Q6HR PRN #15 tablet 03/25/17 [Rx] predniSONE [PredniSONE] 40 mg PO DAILY #10 tablet 03/25/17 [Rx] Allergies No Known Allergies Allergy (Verified 01/31/17 17:52) All Systems PM: A 10-system review of systems was performed and is negative for pertinent findings except as documented above in the HPI. Review of systems: 10 point systems is negative except For HPI - Constitutional Vitals: Temp Pulse Resp BP Pulse Ox 98.1 F 87 20 123/82 97 04/07/17 22:20 04/08/17 02:00 04/08/17 02:20 04/08/17 02:20 04/08/17 02:00 Exam: Gen.: patient is alert oriented times 3 cardiac: normal S1 S2 no additional sounds or murmurs chest: no active wheezing or bronchial breathing abdomen soft nontender nondistended normal bowel sounds lower extremity no swelling. Neuro: no new focal deficits Internal Med - H&P Results - Labs CBC & Chem 7: 04/07/17 23:40 04/07/17 23:40
[2017-04-08] MEDS: Ipratropium/Albuterol Neb 3 ML IH SCH ×6 (03:41→23:03)
[2017-04-08] MEDS ORDERED: Vancomycin 2,000 MG in D5% in Water 250 ML IVPB SCH (04:00)
[2017-04-08] MEDS: *HR* Heparin 5,000 UNIT/ML VIAL SQ SCH ×4 (05:24→20:38)
[2017-04-08 06:24] LABS: Basophils % 0.2 %; Eosinophils % 0.2 %; Hematocrit 37.2 % (37.5-50.1); Hemoglobin 12.5 g/dL (12.9-16.9); Immature Granulocytes % 0.4 % (0-4); Lymphocytes # 1.8 K/mcL (0.6-4.6); Mean Corpuscular HGB Conc 33.6 g/dL (31.6-35.5); Mean Corpuscular Hemoglobin 28.3 pg (28.0-33.3); Mean Corpuscular Volume 84.4 fL (83.0-100.0); Mean Platelet Volume 11.4 fL (9.4-12.4); Monocytes # 0.7 K/mcL (0.0-1.3); Neutrophils # 11.2 K/mcL (1.6-8.9); Platelet Count 206 K/mcL (140-400); Red Blood Count 4.41 M/mcL (4.19-5.50); Red Cell Distribution Width 13.5 % (11.5-14.5); Segmented Neutrophils % 81.2 %
[2017-04-08 06:42] LABS: BUN/Creatinine Ratio 11 (6-26); Blood Urea Nitrogen 9 mg/dL (8-26); Calcium 9.1 mg/dL (8.6-10.8); Carbon Dioxide 29 mEq/L (19-29); Chloride 103 mEq/L (98-109); Glucose 88 mg/dL (70-99); Magnesium 1.8 mg/dL (1.6-2.6); Osmolality,Calculated 288 (280-300); Potassium 3.2 mEq/L (3.5-4.5); Sodium 140 mEq/L (136-145); eGFR For African Americans > 60 (> 60); eGFR For Non-African Americans > 60 (> 60)
[2017-04-08] MEDS ORDERED: Potassium Chloride 40 MEQ, Lidocaine 1% 2 ML in D5% in Water 500 ML IVPB ONE (07:44)
[2017-04-08] MEDS: Famotidine 20 MG/2 ML VIAL IVP SCH (09:29)
[2017-04-08] MEDS: Piperacillin/Tazobactam 3.375 GM in D5% in Water (Mini-Bag+) 100 ML IVPB SCH ×2 (09:29→18:08)
[2017-04-08] MEDS ORDERED: Vancomycin 1,000 MG in D5% in Water 250 ML IVPB SCH (13:00)
--- NOTE | 2017-04-08 14:54 | Electrocardiograph Report ---
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
--- NOTE | 2017-04-08 14:56 | Consult Note ---
Date of Encounter: 04/08/17 Time of Encounter: 14:35 Assessment & Recommendation (1) Opiate dependence Current visit: No Status: Acute Assessment & Recommendation: Recommend referral of the patient to outpatient mental health and substance abuse treatment. He can be discharged when medically stable from psychiatric point of view. There is no acute psychiatric condition that requires inpatient hospitalization at this time. Thank you for consultation Qualifiers: Substance use status: uncomplicated Qualified Code(s): F11.20 - Opioid dependence, uncomplicated History of Present Illness Patient: new to practice Requesting Physician: Deena Quach MD Reason for consult: Suicidal ideation, overdose on heroin History of present illness: Mr. Desai is a 26 year old male admitted for treatment of overdose on heroin. Psychiatric consultation was requested to evaluate suicidal ideation. From the records patient was admitted in 03/22/2017 was similar overdose on heroin and benzodiazepine and he required intubation at that time. There are no records or indication of any previous psychiatric treatment or medication history. Patient admits to be dependence on her when and use it to get high, also he indicates that he is depressed about the anniversary of his father's . Patient tell me that he has been evaluated at the outpatient mental health agency for substance abuse and mental health and scheduled to go back there. CC: Deena Quach MD Past Med Surg Social Fam HX - Past Medical History Medical history: migraine - Past Surgical History Surgical History: no surgical history - Social History Smoking Status: Never smoker Smokeless Tobacco Status: No Alcohol use: rarely Drug use: cocaine, opiates - Family History Mother Living Status: Still Living Father Living Status: Hx Family Medical Disorders: Yes (HIV ) Medications & Allergies Ibuprofen [Motrin] 200 - 400 mg PO Q4HR PRN 03/23/17 [History] Acetaminophen [8 Hour] 650 mg PO Q8H PRN #20 tablet.er 03/25/17 [Rx] Albuterol Sulfate [Albuterol Inhaler] 2 puff IH Q4HR PRN #1 hfa.aer.ad 03/25/17 [Rx] Aspirin/Acetaminophen/Caffeine [Excedrin Migraine Caplet] 1 tab PO DAILY PRN [History] Allergies No Known Allergies Allergy (Verified 01/31/17 17:52) Mental Status Exam Patient orientation: Yes Person, Yes Time, Yes Place Level of alertness: Alert Patient appearance: Appropriate, Well Groomed Behavior: calm, cooperative, anxious Psychomotor activity: Normal Eye contact: Maintains Eye Contact Mood description: Euthymic/stable Affect description: congruent with mood, full range Speech pattern: Normal rate, Normal rhythm, Normal tone Speech volume: Normal Thought process: Linear, Goal Oriented Thought content: No Suicidal ideation, No Homicidal ideation, No Overt delusions Perceptual disturbances: No Auditory hallucinations, No Visual hallucinations Attention span: Capable of Focused Attention Memory description: Grossly Intact Patient reliability: Reliable Historian Intelligence estimate: Average Judgment: Limited Insight: Partial Results - Vital Signs Vital signs: Temp Pulse Resp BP Pulse Ox 98.0 F 86 17 104/66 97 04/08/17 11:19 04/08/17 11:19 04/08/17 11:19 04/08/17 11:19 04/08/17 11:19 - Labs Labs: Laboratory Last Values WBC 13.8 K/mcL (4.3-11.1) H 04/08/17 05:17 RBC 4.41 M/mcL (4.19-5.50) 04/08/17 05:17 Hgb 12.5 g/dL (12.9-16.9) L 04/08/17 05:17 Hct 37.2 % (37.5-50.1) L 04/08/17 05:17 MCV 84.4 fL (83.0-100.0) 04/08/17 05:17 MCH 28.3 pg (28.0-33.3) 04/08/17 05:17 MCHC 33.6 g/dL (31.6-35.5) 04/08/17 05:17 RDW 13.5 % (11.5-14.5) 04/08/17 05:17 Plt Count 206 K/mcL (140-400) 04/08/17 05:17 MPV 11.4 fL (9.4-12.4) 04/08/17 05:17 Immature Gran % 0.4 % (0-4) 04/08/17 05:17 Seg Neutrophils % 81.2 % 04/08/17 05:17 Lymphocytes % 13.0 % 04/08/17 05:17 Monocytes % 5.0 % 04/08/17 05:17 Eosinophils % 0.2 % 04/08/17 05:17 Basophils % 0.2 % 04/08/17 05:17 Neutrophils # 11.2 K/mcL (1.6-8.9) H 04/08/17 05:17 Lymphocytes # 1.8 K/mcL (0.6-4.6) 04/08/17 05:17 Monocytes # 0.7 K/mcL (0.0-1.3) 04/08/17 05:17 Eosinophils # 0.0 K/mcL (0.0-0.6) 04/08/17 05:17 Basophils # 0.0 K/mcL (0.0-0.2) 04/08/17 05:17 Immature Plt Fraction 7.0 % (1.1-6.1) H 04/07/17 23:40 Sodium 140 mEq/L (136-145) 04/08/17 05:17 Potassium 3.2 mEq/L (3.5-4.5) L 04/08/17 05:17 Chloride 103 mEq/L (98-109) 04/08/17 05:17 Carbon Dioxide 29 mEq/L (19-29) 04/08/17 05:17 BUN 9 mg/dL (8-26) 04/08/17 05:17 Creatinine 0.80 mg/dL (0.72-1.25) 04/08/17 05:17 Est GFR ( Amer) > 60 (> 60) 04/08/17 05:17 Est GFR (Non-Af Amer) > 60 (> 60) 04/08/17 05:17 BUN/Creatinine Ratio 11 (6-26) 04/08/17 05:17 Glucose 88 mg/dL (70-99) 04/08/17 05:17 Calculated Osmolality 288 (280-300) 04/08/17 05:17 Calcium 9.1 mg/dL (8.6-10.8) 04/08/17 05:17 Magnesium 1.8 mg/dL (1.6-2.6) 04/08/17 05:17 Total Bilirubin 0.6 mg/dL (0.2-1.2) 04/07/17 23:40 Direct Bilirubin 0.2 mg/dL (0.0-0.5) 04/07/17 23:40 Indirect Bilirubin 0.4 mg/dL (0.0-1.2) 04/07/17 23:40 AST 23 Units/L (5-34) 04/07/17 23:40 ALT 16 Units/L (0-55) 04/07/17 23:40 Alkaline Phosphatase 56 Units/L (38-126) 04/07/17 23:40 Serum Total Protein 7.2 g/dL (6.0-8.3) 04/07/17 23:40 Albumin 4.2 g/dL (3.5-5.0) 04/07/17 23:40 Globulin 3.0 g/dL (2.4-3.5) 04/07/17 23:40 Albumin/Globulin Ratio 1.4 (1.1-2.2) 04/07/17 23:40 Salicylates < 5.0 mg/dL (15-30) L 04/07/17 23:40 Urine Opiates Screen Negative ng/mL (Ryuzte=817) 04/08/17 00:18 Acetaminophen < 1.0 mcg/mL (10-30) L 04/07/17 23:40 Ur Barbiturates Screen Negative ng/mL (Trcujh=633) 04/08/17 00:18 Ur Phencyclidine Scrn Negative ng/mL (Cutoff=25) 04/08/17 00:18 Ur Amphetamines Screen Negative ng/mL (Pbwnxl=3342) 04/08/17 00:18 U Benzodiazepines Scrn Positive ng/mL (Xeltdc=217) H 04/08/17 00:18 Urine Cocaine Screen Negative ng/mL (Cutoff= 300) 04/08/17 00:18 U Marijuana (THC) Screen Negative ng/mL (Cutoff = 50) 04/08/17 00:18 Ethyl Alcohol < 10 mg/dL (0-10) 04/07/17 23:40 Consult Discharge Plan - Plan Referrals: NO,PCP [Primary Care Provider] -
--- NOTE | 2017-04-08 15:54 | Internal Med Progress Note ---
Date of Encounter: 04/08/17 Time of Encounter: 10:00 - Assessment and plan (1) Drug abuse Current Visit: No Status: Chronic Assessment and plan: pipe out worker consult. patient will need detox referral upon discharge. (2) Overdose Current Visit: No Status: Acute Assessment and plan: Improved after treatment. patient is awake alert now. psychiatry consult appreciated. Will DC sitter as psychiatry cleared him. Qualifiers: Encounter type: initial encounter Injury intent: undetermined intent Qualified Code(s): T50.904A - Poisoning by unspecified drugs, medicaments and biological substances, undetermined, initial encounter (3) DVT prophylaxis Current Visit: No Status: Acute Assessment and plan: heparin subcutaneously (4) HCAP (healthcare-associated pneumonia) Current Visit: Yes Status: Acute Assessment and plan: we will continue vancomycin and Zosyn. follow-up blood and sputum culture. patient is at high risk because he is on vancomycin, need close monitoring - Time Spent With Patient Greater than 35 minutes - Subjective Interval history: Patient is a 26-year-old male admit for heroin overdose and healthcare associated pneumonia. Patient was seen and examined. he is awake alert, oriented 3. Complaining of weakness. no fever, no cough. vital signs stable. Psychiatry consult appreciated. We will continue antibiotic for pneumonia. social services coordinator consult for further detox treatment. - Constitutional Vitals: Temp Pulse Resp BP Pulse Ox 98.0 F 86 17 104/66 97 04/08/17 11:19 04/08/17 11:19 04/08/17 11:19 04/08/17 11:19 04/08/17 11:19 General appearance: Present: A&O X 3, no acute distress, answers questions appropriately - Head Head exam: Present: atraumatic, normocephalic - Eye Eye exam: Present: PERRL, conjuntiva pink, sclera anicteric Pupils: Present: PERRL - Neck Neck exam general surgery: Present: supple, trachea midline. Absent: lymphadenopathy - Respiratory Respiratory exam: Present: CTAB. Absent: accessory muscle use, rales, rhonchi, wheezes - Cardiovascular Cardiovascular exam: Present: RRR, +S1, +S2. Absent: diastolic murmur, gallop, rubs, systolic murmur - GI/Abdominal GI/Abdominal exam: Present: normal bowel sounds, soft, no peritoneal signs. Absent: distended, tenderness - Extremities Exam Extremities exam: Present: warm, radial pulses palpable and symetrical. Absent : calf tenderness, cyanotic, pedal edema - Neurological Exam Neurological exam: Present: CN II-XII intact, oriented X3, no focal deficits. Absent: pronater drift, facial droop, speech deficit - Skin Skin exam: Present: dry, intact Internal Medicine: Result - Labs CBC & Chem 7: 04/08/17 05:17 04/08/17 05:17 Labs: Short CBC 04/08/17 Range/Units 05:17 WBC 13.8 H (4.3-11.1) K/mcL Hgb 12.5 L (12.9-16.9) g/dL Hct 37.2 L (37.5-50.1) % Plt Count 206 (140-400) K/mcL Neutrophils # 11.2 H (1.6-8.9) K/mcL [facility] 04/08/17 05:17 Sodium 140 Potassium 3.2 L Chloride 103 Carbon Dioxide 29 BUN 9 Creatinine 0.80 Glucose 88 Calcium 9.1 Consult Discharge Plan - Plan Referrals: [facility] [Outside] - 04/19/17 9:00 am
[2017-04-08] MEDS ORDERED: Acetaminophen 325 MG TABLET PO ONE (23:57)
[2017-04-09] MEDS: Vancomycin 1,000 MG in D5% in Water 250 ML IVPB SCH ×3 (00:06→22:31)
[2017-04-09] MEDS: Piperacillin/Tazobactam 3.375 GM in D5% in Water (Mini-Bag+) 100 ML IVPB SCH ×3 (01:44→17:38)
[2017-04-09] MEDS: Ipratropium/Albuterol Neb 3 ML IH SCH ×6 (03:52→23:00)
[2017-04-09] MEDS: *HR* Heparin 5,000 UNIT/ML VIAL SQ SCH ×3 (05:22→22:03)
[2017-04-09 05:57] LABS: Basophils % 0.3 %; Eosinophils # 0.1 K/mcL (0.0-0.6); Eosinophils % 1.7 %; Hematocrit 36.8 % (37.5-50.1); Hemoglobin 12.4 g/dL (12.9-16.9); Immature Granulocytes % 0.2 % (0-4); Lymphocytes # 2.1 K/mcL (0.6-4.6); Lymphocytes % 35.8 %; Mean Corpuscular HGB Conc 33.7 g/dL (31.6-35.5); Mean Platelet Volume 11.4 fL (9.4-12.4); Monocytes # 0.4 K/mcL (0.0-1.3); Monocytes % 5.9 %; Neutrophils # 3.3 K/mcL (1.6-8.9); Platelet Count 175 K/mcL (140-400); Red Blood Count 4.28 M/mcL (4.19-5.50); Red Cell Distribution Width 13.6 % (11.5-14.5); Segmented Neutrophils % 56.1 %
[2017-04-09 06:02] LABS: BUN/Creatinine Ratio 8 (6-26); Blood Urea Nitrogen 6 mg/dL (8-26); Calcium 9.4 mg/dL (8.6-10.8); Carbon Dioxide 29 mEq/L (19-29); Chloride 105 mEq/L (98-109); Glucose 89 mg/dL (70-99); Osmolality,Calculated 287 (280-300); Potassium 3.7 mEq/L (3.5-4.5); Sodium 140 mEq/L (136-145); eGFR For African Americans > 60 (> 60); eGFR For Non-African Americans > 60 (> 60)
[2017-04-09] MEDS: Famotidine 20 MG/2 ML VIAL IVP SCH (09:00)
[2017-04-09] MEDS: Ibuprofen 400 MG TABLET PO PRN ×2 (13:16→19:44)
--- NOTE | 2017-04-09 14:34 | Internal Med Progress Note ---
Date of Encounter: 04/09/17 Time of Encounter: 09:00 - Assessment and plan (1) HCAP (healthcare-associated pneumonia) Current Visit: Yes Status: Acute Assessment and plan: we will continue vancomycin and Zosyn. follow-up blood and sputum culture. 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 patient will need detox referral upon discharge. (3) Overdose Current Visit: No Status: Acute Assessment and plan: Improved after treatment. patient is awake alert now. continue close monitoring Qualifiers: Encounter type: initial encounter Injury intent: undetermined intent Qualified Code(s): T50.904A - Poisoning by unspecified drugs, medicaments and biological substances, undetermined, initial encounter (4) DVT prophylaxis Current Visit: No Status: Acute Assessment and plan: heparin subcutaneously - Time Spent With Patient Greater than 35 minutes - Subjective Interval history: Patient is a 26-year-old male admit for heroin overdose and healthcare associated pneumonia. Patient was seen and examined. he is awake alert, oriented 3. No fever, no cough. vital signs stable. We will continue antibiotic for pneumonia. Pt had detox appointment on Wednesday. - Constitutional Vitals: Temp Pulse Resp BP Pulse Ox 98.3 F 91 14 99/62 94 04/09/17 11:37 04/09/17 11:37 04/09/17 11:37 04/09/17 11:37 04/09/17 11:37 General appearance: Present: A&O X 3, no acute distress, answers questions appropriately - Head Head exam: Present: atraumatic, normocephalic - Eye Eye exam: Present: PERRL, conjuntiva pink, sclera anicteric Pupils: Present: PERRL - Neck Neck exam general surgery: Present: supple, trachea midline. Absent: lymphadenopathy - Respiratory Respiratory exam: Present: CTAB. Absent: accessory muscle use, rales, rhonchi, wheezes - Cardiovascular Cardiovascular exam: Present: RRR, +S1, +S2. Absent: diastolic murmur, gallop, rubs, systolic murmur - GI/Abdominal GI/Abdominal exam: Present: normal bowel sounds, soft, no peritoneal signs. Absent: distended, tenderness - Extremities Exam Extremities exam: Present: warm, radial pulses palpable and symetrical. Absent : calf tenderness, cyanotic, pedal edema - Neurological Exam Neurological exam: Present: CN II-XII intact, oriented X3, no focal deficits. Absent: pronater drift, facial droop, speech deficit - Skin Skin exam: Present: dry, intact Internal Medicine: Result - Labs CBC & Chem 7: 04/09/17 05:27 04/09/17 05:27 Labs: Short CBC 04/09/17 Range/Units 05:27 WBC 5.9 D (4.3-11.1) K/mcL Hgb 12.4 L (12.9-16.9) g/dL Hct 36.8 L (37.5-50.1) % Plt Count 175 (140-400) K/mcL Neutrophils # 3.3 (1.6-8.9) K/mcL BMP 04/09/17 05:27 Sodium 140 Potassium 3.7 Chloride 105 Carbon Dioxide 29 BUN 6 L Creatinine 0.79 Glucose 89 Calcium 9.4 Consult Discharge Plan - Plan Referrals: [facility] [Outside] - 04/19/17 9:00 am
[2017-04-09] MEDS: Ondansetron 4 MG/2 ML VIAL IVP PRN (19:44)
[2017-04-09] MEDS ORDERED: *HR* Morphine 2 MG/ML SYRINGE ONE (19:59)
[2017-04-09] MEDS ORDERED: *HR* Morphine 2 MG/ML SYRINGE IVP ONE (20:01)
[2017-04-09] MEDS: *HR* HYDROmorphone 2 MG/ML SYRINGE IVP PRN (23:34)
[2017-04-10] MEDS: Piperacillin/Tazobactam 3.375 GM in D5% in Water (Mini-Bag+) 100 ML IVPB SCH ×3 (00:25→17:21)
[2017-04-10] MEDS: *HR* HYDROmorphone 2 MG/ML SYRINGE IVP PRN ×3 (02:47→18:04)
[2017-04-10] MEDS: Ipratropium/Albuterol Neb 3 ML IH SCH ×6 (03:45→23:00)
[2017-04-10] MEDS: Vancomycin 1,000 MG in D5% in Water 250 ML IVPB SCH ×3 (05:15→22:22)
[2017-04-10] MEDS: *HR* Heparin 5,000 UNIT/ML VIAL SQ SCH ×3 (05:16→20:57)
[2017-04-10 06:49] LABS: Basophils % 0.6 %; Eosinophils # 0.2 K/mcL (0.0-0.6); Eosinophils % 3.1 %; Hematocrit 36.8 % (37.5-50.1); Hemoglobin 12.4 g/dL (12.9-16.9); Lymphocytes # 2.2 K/mcL (0.6-4.6); Mean Corpuscular HGB Conc 33.7 g/dL (31.6-35.5); Mean Corpuscular Hemoglobin 29.2 pg (28.0-33.3); Mean Corpuscular Volume 86.6 fL (83.0-100.0); Mean Platelet Volume 11.5 fL (9.4-12.4); Monocytes # 0.4 K/mcL (0.0-1.3); Monocytes % 8.2 %; Neutrophils # 2.1 K/mcL (1.6-8.9); Platelet Count 188 K/mcL (140-400); Red Blood Count 4.25 M/mcL (4.19-5.50); Red Cell Distribution Width 13.3 % (11.5-14.5); Segmented Neutrophils % 43.1 %
[2017-04-10 07:12] LABS: BUN/Creatinine Ratio 7 (6-26); Blood Urea Nitrogen 6 mg/dL (8-26); Calcium 9.1 mg/dL (8.6-10.8); Carbon Dioxide 31 mEq/L (19-29); Chloride 102 mEq/L (98-109); Glucose 117 mg/dL (70-99); Osmolality,Calculated 287 (280-300); Potassium 3.7 mEq/L (3.5-4.5); Sodium 139 mEq/L (136-145); eGFR For African Americans > 60 (> 60); eGFR For Non-African Americans > 60 (> 60)
[2017-04-10] MEDS: Famotidine 20 MG/2 ML VIAL IVP SCH (08:25)
[2017-04-10] MEDS ORDERED: Aminoglycoside Consult 1 EACH MC ONE (12:00)
--- NOTE | 2017-04-10 15:31 | Internal Med Progress Note ---
Date of Encounter: 04/10/17 Time of Encounter: 10:00 - Assessment and plan (1) HCAP (healthcare-associated pneumonia) Current Visit: Yes Status: Acute Assessment and plan: we will continue vancomycin and Zosyn. blood culture negative, f/u sputum culture. 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 patient will need detox referral upon discharge. (3) Overdose Current Visit: No Status: Acute Assessment and plan: Improved after treatment. patient is awake alert now. continue close monitoring Qualifiers: Encounter type: initial encounter Injury intent: undetermined intent Qualified Code(s): T50.904A - Poisoning by unspecified drugs, medicaments and biological substances, undetermined, initial encounter (4) DVT prophylaxis Current Visit: No Status: Acute Assessment and plan: heparin subcutaneously (5) Colitis Current Visit: Yes Status: Acute Assessment and plan: C diff negative. will give supportive treatment. Will add Lactobacillus to prevent C Diff as pt is on abx. - Time Spent With Patient Greater than 35 minutes - Subjective Interval history: Patient is a 26-year-old male admit for heroin overdose and healthcare associated pneumonia. Patient was seen and examined. Pt c/o cramping abd pain and diarrhea since yesterday evening. C Diff test negative. CT abd unremarkable. vital signs stable. We will continue antibiotic for pneumonia. Blood culture negative. Pt had detox appointment on Wednesday. - Constitutional Vitals: Temp Pulse Resp BP Pulse Ox 97.9 F 62 17 105/67 98 04/10/17 15:20 04/10/17 15:20 04/10/17 15:20 04/10/17 15:20 04/10/17 15:20 General appearance: Present: A&O X 3, no acute distress, answers questions appropriately - Head Head exam: Present: atraumatic, normocephalic - Eye Eye exam: Present: PERRL, conjuntiva pink, sclera anicteric Pupils: Present: PERRL - Neck Neck exam general surgery: Present: supple, trachea midline. Absent: lymphadenopathy - Respiratory Respiratory exam: Present: CTAB. Absent: accessory muscle use, rales, rhonchi, wheezes - Cardiovascular Cardiovascular exam: Present: RRR, +S1, +S2. Absent: diastolic murmur, gallop, rubs, systolic murmur - GI/Abdominal GI/Abdominal exam: Present: hyperactive bowel sounds, soft, tenderness (Mild tenderness on RLQ and RUQ w/o rebound or guarding.), no peritoneal signs. Absent: distended - Extremities Exam Extremities exam: Present: warm, radial pulses palpable and symetrical. Absent : calf tenderness, cyanotic, pedal edema - Neurological Exam Neurological exam: Present: CN II-XII intact, oriented X3, no focal deficits. Absent: pronater drift, facial droop, speech deficit - Skin Skin exam: Present: dry, intact Internal Medicine: Result - Labs CBC & Chem 7: 04/10/17 06:28 04/10/17 06:28 Labs: Short CBC 04/10/17 Range/Units 06:28 WBC 4.9 (4.3-11.1) K/mcL Hgb 12.4 L (12.9-16.9) g/dL Hct 36.8 L (37.5-50.1) % Plt Count 188 (140-400) K/mcL Neutrophils # 2.1 (1.6-8.9) K/mcL [facility] 04/10/17 06:28 Sodium 139 Potassium 3.7 Chloride 102 Carbon Dioxide 31 H BUN 6 L Creatinine 0.84 Glucose 117 H Calcium 9.1 - Impressions Impressions Abdomen/Pelvis CT 04/10/17 22:46 IMPRESSION: 1. Small opacity in the left lower lobe. Correlate for mild pneumonia. 2. No acute findings identified in the abdomen and pelvis. 3. Mildly enlarged spleen. D/ / 04/10/2017 07:00:17 Harry Stern MD / [facility] Interpreting Provider: Harry Stern MD Consult Discharge Plan - Plan [facility] - 04/19/17 9:00 am
[2017-04-10] MEDS: Lactobacillus 1 EACH CAP.SPRINK PO SCH (17:21)
[2017-04-10] MEDS: Ondansetron 4 MG/2 ML VIAL IVP PRN (19:39)
[2017-04-10] MEDS ORDERED: *HR* Promethazine 25 MG/ML VIAL IVP ONE (20:11)
[2017-04-10] MEDS ORDERED: Ketorolac 15 MG/ML VIAL IVP ONE (20:13)
[2017-04-11] MEDS: Piperacillin/Tazobactam 3.375 GM in D5% in Water (Mini-Bag+) 100 ML IVPB SCH ×2 (00:06→08:35)
[2017-04-11 03:57] LABS: Basophils % 0.3 %; Eosinophils # 0.1 K/mcL (0.0-0.6); Hematocrit 37.2 % (37.5-50.1); Hemoglobin 12.4 g/dL (12.9-16.9); Immature Granulocytes % 0.1 % (0-4); Lymphocytes # 1.7 K/mcL (0.6-4.6); Lymphocytes % 25.3 %; Mean Corpuscular HGB Conc 33.3 g/dL (31.6-35.5); Mean Corpuscular Hemoglobin 28.5 pg (28.0-33.3); Mean Corpuscular Volume 85.5 fL (83.0-100.0); Mean Platelet Volume 11.5 fL (9.4-12.4); Monocytes # 0.8 K/mcL (0.0-1.3); Neutrophils # 4.1 K/mcL (1.6-8.9); Platelet Count 151 K/mcL (140-400); Red Blood Count 4.35 M/mcL (4.19-5.50); Red Cell Distribution Width 13.1 % (11.5-14.5); Segmented Neutrophils % 60.3 %
[2017-04-11 04:12] LABS: Calcium 9.2 mg/dL (8.6-10.8)
[2017-04-11] MEDS: Ipratropium/Albuterol Neb 3 ML IH SCH ×6 (04:23→23:06)
[2017-04-11] MEDS: *HR* Heparin 5,000 UNIT/ML VIAL SQ SCH ×3 (04:59→21:02)
[2017-04-11] MEDS: Vancomycin 1,000 MG in D5% in Water 250 ML IVPB SCH (05:52)
[2017-04-11] MEDS: Famotidine 20 MG/2 ML VIAL IVP SCH (08:34)
[2017-04-11] MEDS: Lactobacillus 1 EACH CAP.SPRINK PO SCH (08:34)
[2017-04-11] MEDS ORDERED: levoFLOXacin 750 MG TABLET PO SCH (11:00)
--- NOTE | 2017-04-11 12:17 | Internal Med Progress Note ---
Date of Encounter: 04/11/17 Time of Encounter: 10:00 - Assessment and plan (1) HCAP (healthcare-associated pneumonia) Current Visit: Yes Status: Acute Assessment and plan: Deesclate abx to levaquin po as pneumonia clinically improved and blood culture negative. 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 patient will need detox referral upon discharge. (3) Overdose Current Visit: No Status: Acute Assessment and plan: Improved after treatment. patient is awake alert now. continue close monitoring Qualifiers: Encounter type: initial encounter Injury intent: undetermined intent Qualified Code(s): T50.904A - Poisoning by unspecified drugs, medicaments and biological substances, undetermined, initial encounter (4) DVT prophylaxis Current Visit: No Status: Acute Assessment and plan: heparin subcutaneously (5) Colitis Current Visit: Yes Status: Acute Assessment and plan: C diff negative. will give supportive treatment. Will add Lactobacillus to prevent C Diff as pt is on abx. IVF started for dehydration. (6) LORETTA (acute kidney injury) Current Visit: No Status: Resolved Assessment and plan: Pt has elevated Cr with diarrhea, will consider dehydration induced LORETTA, start IVF 125ml per hour, follow up with renal function. - Time Spent With Patient 25 - 35 minutes - Subjective Interval history: Patient is a 26-year-old male admit for heroin overdose and healthcare associated pneumonia. Patient was seen and examined. Pt still c/o cramping abd pain and diarrhea. He had watery BM x 2 last night. Will continue supportive therapy as C Diff negative. Pt is clinically improved with pneumonia and blood culture negative, will deescalate abx to levaquin 750mg po qd. Pt has elevated Cr, consider dehydration caused by diarrhea, will start IVF. - Constitutional Vitals: Temp Pulse Resp BP Pulse Ox 99.1 F 84 16 100/66 96 04/11/17 11:01 04/11/17 11:01 04/11/17 11:01 04/11/17 11:01 04/11/17 11:01 General appearance: Present: A&O X 3, no acute distress, answers questions appropriately - Head Head exam: Present: atraumatic, normocephalic - Eye Eye exam: Present: PERRL, conjuntiva pink, sclera anicteric Pupils: Present: PERRL - Neck Neck exam general surgery: Present: supple, trachea midline. Absent: lymphadenopathy - Respiratory Respiratory exam: Present: CTAB. Absent: accessory muscle use, rales, rhonchi, wheezes - Cardiovascular Cardiovascular exam: Present: RRR, +S1, +S2. Absent: diastolic murmur, gallop, rubs, systolic murmur - GI/Abdominal GI/Abdominal exam: Present: normal bowel sounds, soft, tenderness (Pt has RLQ and RUQ terderness w/o rebound or guarding.), no peritoneal signs. Absent: distended - Extremities Exam Extremities exam: Present: warm, radial pulses palpable and symetrical. Absent : calf tenderness, cyanotic, pedal edema - Neurological Exam Neurological exam: Present: CN II-XII intact, oriented X3, no focal deficits. Absent: pronater drift, facial droop, speech deficit - Skin Skin exam: Present: dry, intact Internal Medicine: Result - Labs CBC & Chem 7: 04/11/17 02:55 04/11/17 02:55 Labs: Short CBC 04/11/17 Range/Units 02:55 WBC 6.9 (4.3-11.1) K/mcL Hgb 12.4 L (12.9-16.9) g/dL Hct 37.2 L (37.5-50.1) % Plt Count 151 (140-400) K/mcL Neutrophils # 4.1 (1.6-8.9) K/mcL BMP 04/11/17 02:55 Sodium 139 Potassium 4.0 Chloride 102 Carbon Dioxide 30 H BUN 10 Creatinine 1.84 H D Glucose 85 Calcium 9.2 - Impressions Impressions Abdomen/Pelvis CT 04/10/17 22:46 IMPRESSION: 1. Small opacity in the left lower lobe. Correlate for mild pneumonia. 2. No acute findings identified in the abdomen and pelvis. 3. Mildly enlarged spleen. D/ / 04/10/2017 07:00:17 Harry Stern MD / [facility] Interpreting Provider: Harry Stern MD Consult Discharge Plan - [facility] - 04/19/17 9:00 am
[2017-04-11] MEDS: 0.9 % Sodium Chloride 1,000 ML IVC SCH ×2 (12:57→21:01)
[2017-04-11] MEDS: *HR* Promethazine 25 MG/ML VIAL IVP PRN (14:10)
[2017-04-12] MEDS: Ipratropium/Albuterol Neb 3 ML IH SCH ×6 (03:48→23:10)
[2017-04-12 04:42] LABS: Basophils % 0.5 %; Eosinophils # 0.1 K/mcL (0.0-0.6); Eosinophils % 1.2 %; Hematocrit 34.1 % (37.5-50.1); Hemoglobin 11.6 g/dL (12.9-16.9); Immature Granulocytes % 0.3 % (0-4); Lymphocytes # 1.5 K/mcL (0.6-4.6); Lymphocytes % 22.5 %; Mean Corpuscular Hemoglobin 28.7 pg (28.0-33.3); Mean Corpuscular Volume 84.4 fL (83.0-100.0); Mean Platelet Volume 11.8 fL (9.4-12.4); Monocytes # 0.7 K/mcL (0.0-1.3); Monocytes % 11.2 %; Neutrophils # 4.2 K/mcL (1.6-8.9); Platelet Count 139 K/mcL (140-400); Red Blood Count 4.04 M/mcL (4.19-5.50); Red Cell Distribution Width 12.9 % (11.5-14.5); Segmented Neutrophils % 64.3 %
[2017-04-12] MEDS: *HR* Heparin 5,000 UNIT/ML VIAL SQ SCH ×3 (04:56→20:35)
[2017-04-12 05:00] LABS: Albumin 3.2 g/dL (3.5-5.0); Albumin/Globulin Ratio 1.1 (1.1-2.2); Bilirubin,Total 0.7 mg/dL (0.2-1.2); Calcium 8.3 mg/dL (8.6-10.8); Globulin 2.9 g/dL (2.4-3.5); Potassium 3.8 mEq/L (3.5-4.5); Total Protein 6.1 g/dL (6.0-8.3)
[2017-04-12] MEDS: 0.9 % Sodium Chloride 1,000 ML IVC SCH ×3 (05:09→20:37)
[2017-04-12] MEDS: Lactobacillus 1 EACH CAP.SPRINK PO SCH (08:13)
[2017-04-12] MEDS: Famotidine 20 MG/2 ML VIAL IVP SCH (08:13)
--- NOTE | 2017-04-12 10:54 | Nephrology Consult Note ---
Date of Encounter: 04/12/17 Time of Encounter: 10:50 Assessment and Plan (1) HCAP (healthcare-associated pneumonia) Current Visit: Yes Status: Acute Per primary team. Patient on antibiotics and is improving. (2) LORETTA (acute kidney injury) Current Visit: No Status: Acute Patient with multifactorial LORETTA. No accurate assessment of his urine output is available at this time. His baseline renal function is normal. He received a dose of ibuprofen, was on vancomycin and received iv iodonated contrast dye within a close time span and this was followed by a significant decrease in his renal function. Agree with discontinuing his nephrotoxins. Agree with hydration. Await renal ultrasound Need accurate Is and Os. No acute need for renal replacement therapy. Will follow renal function. (3) Opiate dependence Current Visit: No Status: Acute Patient with a history of opiate overdose. Outpatient management. Qualifiers: Qualified Code(s): F11.20 - Opioid dependence, uncomplicated History of Present Illness - Reason for Consult Consult date: 04/12/17 Acute Kidney Injury - Chief Complaint LORETTA - History of Present Illness Mr. Desai is a 26 yo man with a history of opiate abuse who presents to [facility] and was diagnosed with pneumonia. He was treated with vancomycin and zosyn and subsequently developed acute kidney injury. [facility] was consulted for evaluation of LORETTA. He denies any history other than opiate use. Past Med Surg Social Fam HX - Past Medical History Medical history: migraine Psychiatric history: anxiety, depression - Past Surgical History Surgical History: no surgical history - Social History Smoking Status: Never smoker Smokeless Tobacco Status: No Alcohol use: rarely Drug use: cocaine, opiates - Family History Mother Living Status: Still Living Father Living Status: Hx Family Medical Disorders: Yes (HIV ) Medications and Allergies Ibuprofen [Motrin] 200 - 400 mg PO Q4HR PRN 03/23/17 [History] Acetaminophen [8 Hour] 650 mg PO Q8H PRN #20 tablet.er 03/25/17 [Rx] Albuterol Sulfate [Albuterol Inhaler] 2 puff IH Q4HR PRN #1 [email or web address] 03/25/17 [Rx] Aspirin/Acetaminophen/Caffeine [Excedrin Migraine Caplet] 1 tab PO DAILY PRN [History] Allergies No Known Allergies Allergy (Verified 01/31/17 17:52) Review of Systems All Systems: reviewed and no additional remarkable complaints except as stated ( as documented in the HPI.) Exam - Vital Signs Vital signs: Initial Vital Signs Temp Pulse Resp BP Pulse Ox 98.1 F 119 16 116/82 92 04/07/17 22:20 04/07/17 22:20 04/07/17 22:20 04/07/17 22:20 04/07/17 22:20 Vital Signs - Last 8 Hours Temp Pulse Resp BP Pulse Ox 04/12/17 07:19 98.5 F 75 17 103/66 97 04/12/17 04:04 98.4 F 84 16 116/65 97 Intake and Output 04/11/17 04/12/17 04/12/17 23:59 07:59 15:59 Intake Total 1800 / 1800 1240 / 1240 Balance 1800 / 1800 1240 / 1240 Intake: IV Fluids 1000 / 1000 1000 / 1000 0.9 % Sodium Chloride 1, 1000 / 1000 1000 / 1000 000 ML @ 125 mls/hr IVC . Q8H [facility] Rx#:[id number] Oral 800 / 800 240 / 240 Other: Meal Dinner Percent of Meal Consumed 10% Weight 71.033 kg Patient Weight 04/12/17 23:59 Weight 71.033 kg - General Appearance General appearance: well-developed, well-nourished EENT: ATNC Neck: supple Respiratory: clear Cardiology: no edema, regular rate, regular rhythm Gastrointestinal: normoactive bowel sounds Integumentary: warm and dry Neurologic: alert and oriented x3 Musculoskeletal: no erythema Psychiatric: mood/affect appropriate Results - Lab Results 04/12/17 03:29 04/12/17 03:29 Most recent lab results Calcium 8.3 mg/dL (8.6-10.8) L 04/12/17 03:29 Magnesium 1.8 mg/dL (1.6-2.6) 04/08/17 05:17 Consult Discharge Plan - Plan Referrals: Ad Watson [Outside] - 04/19/17 9:00 am
--- NOTE | 2017-04-12 11:39 | Internal Med Progress Note ---
Date of Encounter: 04/12/17 Time of Encounter: 10:00 - Assessment and plan (1) HCAP (healthcare-associated pneumonia) Current Visit: Yes Status: Acute Assessment and plan: Deesclate abx to levaquin po as pneumonia clinically improved and blood culture negative. (2) Drug abuse Current Visit: No Status: Chronic Assessment and plan: coal chute worker consult. patient will need detox referral upon discharge. (3) Overdose Current Visit: No Status: Acute Assessment and plan: Improved after treatment. patient is awake alert now. continue close monitoring Qualifiers: Encounter type: initial encounter Injury intent: undetermined intent Qualified Code(s): T50.904A - Poisoning by unspecified drugs, medicaments and biological substances, undetermined, initial encounter (4) DVT prophylaxis Current Visit: No Status: Acute Assessment and plan: heparin subcutaneously (5) Colitis Current Visit: Yes Status: Acute Assessment and plan: Improved now, no diarrhea since last night. Abd pain resolved. C diff negative. Will cont Lactobacillus to prevent C Diff as pt is on abx. IVF started for dehydration. (6) LORETTA (acute kidney injury) Current Visit: No Status: Resolved Assessment and plan: Pt has elevated Cr , nephrology consult called. start IVF 125ml per hour, avoid nephrotoxic med. Close f/u renal US and renal function. - Time Spent With Patient 25 - 35 minutes - Subjective Interval history: Patient is a 26-year-old male admit for heroin overdose and healthcare associated pneumonia. Patient was seen and examined. Pt's abd pain and diarrhea improved. However Cr jump to 3.96 although pt is on IVF. Nephrology is consulted and recommendation is appreciated. Pt is clinically improved with pneumonia and blood culture negative, will deescalate abx to levaquin 750mg po q48hr. - Constitutional Vitals: Temp Pulse Resp BP Pulse Ox 99.1 F 79 16 115/73 97 04/12/17 10:54 04/12/17 10:54 04/12/17 10:54 04/12/17 10:54 04/12/17 10:54 General appearance: Present: A&O X 3, no acute distress, answers questions appropriately - Head Head exam: Present: atraumatic, normocephalic - Eye Eye exam: Present: PERRL, conjuntiva pink, sclera anicteric Pupils: Present: PERRL - Neck Neck exam general surgery: Present: supple, trachea midline. Absent: lymphadenopathy - Respiratory Respiratory exam: Present: CTAB. Absent: accessory muscle use, rales, rhonchi, wheezes - Cardiovascular Cardiovascular exam: Present: RRR, +S1, +S2. Absent: diastolic murmur, gallop, rubs, systolic murmur - GI/Abdominal GI/Abdominal exam: Present: normal bowel sounds, soft, no peritoneal signs. Absent: distended, tenderness - Extremities Exam Extremities exam: Present: warm, radial pulses palpable and symetrical. Absent : calf tenderness, cyanotic, pedal edema - Neurological Exam Neurological exam: Present: CN II-XII intact, oriented X3, no focal deficits. Absent: pronater drift, facial droop, speech deficit - Skin Skin exam: Present: dry, intact Internal Medicine: Result - Labs CBC & Chem 7: 04/12/17 03:29 04/12/17 03:29 Labs: Short CBC 04/12/17 Range/Units 03:29 WBC 6.6 (4.3-11.1) K/mcL Hgb 11.6 L (12.9-16.9) g/dL Hct 34.1 L (37.5-50.1) % Plt Count 139 L (140-400) K/mcL Neutrophils # 4.2 (1.6-8.9) K/mcL BMP 04/12/17 03:29 Sodium 139 Potassium 3.8 Chloride 107 Carbon Dioxide 24 BUN 14 Creatinine 3.96 H D Glucose 80 Calcium 8.3 L Liver Function 04/12/17 Range/Units 03:29 Total Bilirubin 0.7 (0.2-1.2) mg/dL AST 13 (5-34) Units/L ALT 6 (0-55) Units/L Alkaline Phosphatase 33 L (38-126) Units/L Albumin 3.2 L (3.5-5.0) g/dL Consult Discharge Plan - Plan Referrals: Ad Watson [Outside] - 04/19/17 9:00 am
[2017-04-12] MEDS: *HR* Promethazine 25 MG/ML VIAL IVP PRN (11:54)
[2017-04-13] MEDS: Ipratropium/Albuterol Neb 3 ML IH SCH ×6 (03:44→23:30)
[2017-04-13 04:47] LABS: Calcium 8.2 mg/dL (8.6-10.8); Potassium 3.8 mEq/L (3.5-4.5)
[2017-04-13] MEDS: 0.9 % Sodium Chloride 1,000 ML IVC SCH ×3 (05:46→19:22)
[2017-04-13] MEDS: *HR* Heparin 5,000 UNIT/ML VIAL SQ SCH ×3 (05:46→21:12)
[2017-04-13] MEDS: Famotidine 20 MG/2 ML VIAL IVP SCH (07:47)
[2017-04-13] MEDS: Lactobacillus 1 EACH CAP.SPRINK PO SCH (07:47)
[2017-04-13] MEDS ORDERED: Levofloxacin 250 MG/50 ML 250 MG/50 ML BAG IVPB SCH (09:00)
[2017-04-13] MEDS ORDERED: levoFLOXacin 250 MG TABLET PO SCH (09:00)
[2017-04-13 10:22] LABS: Bilirubin,Urine Negative (Negative); Blood,Urine Negative (Negative); Clarity,Urine Clear (Clear); Color,Urine Yellow (Yellow); Glucose,Urine (UA) Normal (Normal); Ketones,Urine Negative (Negative); Leukocyte Esterase,Urine Negative (Negative); Nitrite,Urine Negative (Negative); PH,Urine 6.5 pH Units (5.0-8.0); Protein,Urine Negative (Neg-Trace); Specific Gravity,Urine 1.006 (1.010-1.025); Urobilinogen,Urine Normal (Normal)
[2017-04-13 10:29] LABS: Chloride,Urine 65 mEq/L; Creatinine,Urine 34 mg/dL; Potassium,Urine < 10.0 mEq/L
[2017-04-13] MEDS: Levofloxacin 750 MG/150 ML 750 MG/150 ML BAG IVPB SCH (11:31)
--- NOTE | 2017-04-13 12:58 | Internal Med Progress Note ---
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 (3) DVT prophylaxis Current Visit: No Status: Acute Assessment and plan: heparin subcutaneously (4) HCAP (healthcare-associated pneumonia) Current Visit: Yes Status: Acute Assessment and plan: Deesclate abx to levaquin IV as pneumonia clinically improved and blood culture negative. (5) Opiate dependence Current Visit: No Status: Chronic Qualifiers: Qualified Code(s): F11.20 - Opioid dependence, uncomplicated (6) Colitis Current Visit: Yes Status: Acute Assessment and plan: Improved now C diff negative. Will cont Lactobacillus to prevent C Diff as pt is on abx Continue IV fluids Pt tolerating PO intake well, started regular diet today - Subjective Interval history: Patient seen and examined at bedside. Resting in bed and reports of improvement in his diarrhea. Noted to have worsening renal function. No overnight issues reported. - Constitutional Vitals: Temp Pulse Resp BP Pulse Ox 98.4 F 79 16 116/73 97 04/13/17 07:20 04/13/17 07:20 04/13/17 07:20 04/13/17 07:20 04/13/17 07:20 General appearance: Present: A&O X 3, no acute distress, answers questions appropriately - Head Head exam: Present: atraumatic, normocephalic - Eye Eye exam: Present: normal appearance, conjuntiva pink, sclera anicteric - Respiratory Respiratory exam: Present: CTAB. Absent: respiratory distress, wheezes - Cardiovascular Cardiovascular exam: Present: RRR, +S1, +S2 - GI/Abdominal GI/Abdominal exam: Present: normal bowel sounds, soft, no peritoneal signs. Absent: distended, tenderness - Extremities Exam Extremities exam: Present: warm, radial pulses palpable and symetrical. Absent : calf tenderness, cyanotic, pedal edema - Neurological Exam Neurological exam: Present: alert, oriented X3 - Psychiatric Psychiatric exam: Present: normal affect, normal mood Internal Medicine: Result - Labs CBC & Chem 7: 04/12/17 03:29 04/13/17 03:31 Labs: BMP 04/13/17 03:31 Sodium 138 Potassium 3.8 Chloride 108 Carbon Dioxide 22 BUN 14 Creatinine 4.56 H Glucose 86 Calcium 8.2 L Urine 04/13/17 Range/Units 10:09 Urine Color Yellow (Yellow) Urine Clarity Clear (Clear) Urine pH 6.5 (5.0-8.0) pH Units Ur Specific [place] 1.006 L (1.010-1.025) Urine Protein Negative (Neg-Trace) mg/dL Urine Glucose (UA) Normal (Normal) mg/dL - Impressions Impressions Retroperitoneum Ultrasound 04/12/17 14:30 IMPRESSION: Increased renal cortical echogenicity, likely related to medical renal disease. No evidence of hydronephrosis. Unremarkable urinary bladder, without postvoid residual. D/ / Yohan Hess MD / Yohan Hess MD Interpreting Provider: Yohan Hess MD Consult Discharge Plan - Plan Referrals: Ad Watson [Outside] - 04/19/17 9:00 am
[2017-04-13] MEDS: *HR* Promethazine 25 MG/ML VIAL IVP PRN (16:50)
--- NOTE | 2017-04-13 16:58 | Nephrology Progress Note ---
Date of Encounter: 04/13/17 Time of Encounter: 16:54 - Assessment and Plan (1) HCAP (healthcare-associated pneumonia) Current Visit: Yes Status: Acute per primary team. vancomycin discontinued. (2) LORETTA (acute kidney injury) Current Visit: No Status: Acute multifactorial, but not improving. Need accurate Is and Os. No acute need for MOTOR VEHICLE OR CARAVAN SALESPERSON, but if he does not improve this may be needed in the next few days. (3) Opiate dependence Current Visit: No Status: Chronic monitor for withdrawl Qualifiers: Qualified Code(s): F11.20 - Opioid dependence, uncomplicated Subjective Principal diagnosis: LORETTA Interval history: Patient complaining of nausea and vomiting. He is sitting on the floor next to the toilet. Objective - Vital Signs Vital signs: Vital Signs Temp Pulse Resp BP Pulse Ox 04/13/17 15:13 98.1 F 75 16 155/90 100 04/13/17 07:20 98.4 F 79 16 116/73 97 04/12/17 22:53 98.7 F 87 16 101/62 99 04/12/17 20:45 98 04/12/17 18:46 98.9 F 78 16 128/82 98 Intake and Output 04/13/17 04/13/17 04/13/17 07:59 15:59 23:59 Intake Total 1000 / 1000 120 / 120 Balance 1000 / 1000 120 / 120 Intake: IV Fluids 1000 / 1000 0.9 % Sodium Chloride 1, 1000 / 1000 000 ML @ 125 mls/hr IVC . Q8H [facility] Rx#:[id number] Oral 120 / 120 Other: Meal Breakfast Percent of Meal Consumed 10% Weight 73.21 kg Patient Weight 04/13/17 23:59 Weight 73.21 kg - General Appearance General appearance: Present: well-developed, well-nourished EENT: Present: ATNC Neck: Present: supple Additional Comments: unlabored Cardiology: Present: regular rate Neurologic: Present: alert and oriented x3 - Lab 04/12/17 03:29 04/13/17 03:31 Most recent lab results Calcium 8.2 mg/dL (8.6-10.8) L 04/13/17 03:31 Magnesium 1.8 mg/dL (1.6-2.6) 04/08/17 05:17 Urine Creatinine 34 mg/dL 04/13/17 10:09 Urine Sodium 63.0 mEq/L 04/13/17 10:09 Consult Discharge Plan - Plan Referrals: Ad Watson [Outside] - 04/19/17 9:00 am
[2017-04-13] MEDS: *HR* HYDROmorphone 2 MG/ML SYRINGE IVP PRN (21:12)
[2017-04-14] MEDS: Ipratropium/Albuterol Neb 3 ML IH SCH ×6 (03:48→23:14)
[2017-04-14] MEDS: 0.9 % Sodium Chloride 1,000 ML IVC SCH ×3 (04:00→21:14)
[2017-04-14] MEDS: *HR* Heparin 5,000 UNIT/ML VIAL SQ SCH ×3 (05:16→21:12)
[2017-04-14] MEDS: Lactobacillus 1 EACH CAP.SPRINK PO SCH (09:06)
[2017-04-14 09:33] LABS: Basophils % 0.3 %; Eosinophils % 0.3 %; Hematocrit 34.2 % (37.5-50.1); Hemoglobin 11.7 g/dL (12.9-16.9); Immature Granulocytes % 0.2 % (0-4); Lymphocytes # 1.4 K/mcL (0.6-4.6); Lymphocytes % 22.6 %; Mean Corpuscular HGB Conc 34.2 g/dL (31.6-35.5); Mean Corpuscular Hemoglobin 28.7 pg (28.0-33.3); Mean Platelet Volume 11.4 fL (9.4-12.4); Monocytes # 0.7 K/mcL (0.0-1.3); Monocytes % 11.4 %; Neutrophils # 4.1 K/mcL (1.6-8.9); Platelet Count 111 K/mcL (140-400); Red Blood Count 4.07 M/mcL (4.19-5.50); Segmented Neutrophils % 65.2 %
[2017-04-14 09:42] LABS: Calcium 8.4 mg/dL (8.6-10.8); Phosphorous 3.6 mg/dL (2.3-4.7); Potassium 3.9 mEq/L (3.5-4.5)
--- NOTE | 2017-04-14 11:23 | Nephrology Progress Note ---
Date of Encounter: 04/14/17 Time of Encounter: 11:21 - Assessment and Plan (1) HCAP (healthcare-associated pneumonia) Current Visit: Yes Status: Acute per primary team. vancomycin discontinued. (2) LORETTA (acute kidney injury) Current Visit: No Status: Acute multifactorial, but not improving. Need accurate Is and Os. No acute need for MACHINE SPECIALIST, but if he does not improve this may be needed in the next few days. (3) Opiate dependence Current Visit: No Status: Chronic monitor for withdrawl Qualifiers: Qualified Code(s): F11.20 - Opioid dependence, uncomplicated Subjective Principal diagnosis: LORETTA Interval history: Patient complaining of nausea and vomiting. He reports it is better than yesterday. He denies abdominal pain. Objective - Vital Signs Vital signs: Vital Signs Temp Pulse Resp BP Pulse Ox 04/14/17 10:56 99.2 F 72 17 134/87 99 04/14/17 07:16 98.7 F 81 18 133/91 95 04/14/17 04:05 99.0 F 91 15 117/75 96 04/14/17 00:28 98.5 F 96 15 124/78 96 04/13/17 19:24 99 04/13/17 18:57 98.9 F 91 15 126/79 100 04/13/17 15:13 98.1 F 75 16 155/90 100 Intake and Output 04/13/17 04/14/17 04/14/17 23:59 07:59 15:59 Intake Total 1096 / 1096 2900 / 2900 1520 / 1520 Output Total 400 / 400 Balance 1096 / 1096 2900 / 2900 1120 / 1120 Intake: IV Fluids 956 / 956 1000 / 1000 0.9 % Sodium Chloride 1, 956 / 956 1000 / 1000 000 ML @ 125 mls/hr IVC . Q8H [facility] Rx#:[id number] Oral 140 / 140 1900 / 1900 1520 / 1520 Output: Urine 400 / 400 Other: Meal Dinner water pitcher filled water pitcher Percent of Meal Consumed 45% 0% # Voids 2 2 Weight 72.575 kg Patient Weight 04/14/17 23:59 Weight 72.575 kg - General Appearance General appearance: Present: well-developed, well-nourished EENT: Present: ATNC Neck: Present: supple Additional Comments: respirations are unlabored. Cardiology: Present: regular rate Neurologic: Present: alert and oriented x3 Psychiatric: Present: mood/affect appropriate - Lab 04/14/17 09:22 04/14/17 09:22 Most recent lab results Calcium 8.4 mg/dL (8.6-10.8) L 04/14/17 09:22 Phosphorus 3.6 mg/dL (2.3-4.7) 04/14/17 09:22 Magnesium 1.8 mg/dL (1.6-2.6) 04/08/17 05:17 Urine Creatinine 34 mg/dL 04/13/17 10:09 Urine Sodium 63.0 mEq/L 04/13/17 10:09 Consult Discharge Plan - Plan Referrals: Ad Watson [Outside] - 04/19/17 9:00 am
[2017-04-14] MEDS: Ondansetron 4 MG/2 ML VIAL IVP PRN ×2 (12:17→21:30)
--- NOTE | 2017-04-14 12:45 | Internal Med Progress Note ---
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 closely monitor for withdrawal symptoms (3) DVT prophylaxis Current Visit: No Status: Acute Assessment and plan: heparin subcutaneously (4) HCAP (healthcare-associated pneumonia) Current Visit: Yes Status: Acute Assessment and plan: pt will finish 7 days of abx therapy in am (04/15/17) clinically improved (5) Opiate dependence Current Visit: No Status: Chronic Qualifiers: Qualified Code(s): F11.20 - Opioid dependence, uncomplicated (6) Colitis Current Visit: Yes Status: Acute Assessment and plan: Improved now C diff negative. Will cont Lactobacillus to prevent C Diff as pt is on abx Continue IV fluids Pt tolerating PO intake well - Subjective Interval history: Patient seen and examined at bedside. Denies any discomfort at this time, however reports of having persistent diarrhea. No loose BM have been reported to the nursing staff and patient is advised to inform the nursing staff next time he has a BM. Pt is also educated on the need to have strict monitoring of his urine output as he continues to use the bathroom. Denies any abd discomfort at this time, tolerating PO intake. - Constitutional Vitals: Temp Pulse Resp BP Pulse Ox 99.2 F 72 17 134/87 99 04/14/17 10:56 04/14/17 10:56 04/14/17 10:56 04/14/17 10:56 04/14/17 10:56 General appearance: Present: A&O X 3, no acute distress, answers questions appropriately - Head Head exam: Present: atraumatic, normocephalic - Eye Eye exam: Present: normal appearance, conjuntiva pink, sclera anicteric - Respiratory Respiratory exam: Present: CTAB. Absent: accessory muscle use, rales, rhonchi, wheezes - Cardiovascular Cardiovascular exam: Present: RRR, +S1, +S2. Absent: diastolic murmur, gallop, rubs, systolic murmur - GI/Abdominal GI/Abdominal exam: Present: normal bowel sounds, soft, no peritoneal signs. Absent: distended, tenderness - Extremities Exam Extremities exam: Present: warm, radial pulses palpable and symetrical. Absent : calf tenderness, cyanotic, pedal edema - Neurological Exam Neurological exam: Present: alert, oriented X3, no focal deficits - Psychiatric Psychiatric exam: Present: normal affect, normal mood Internal Medicine: Result - Labs CBC & Chem 7: 04/14/17 09:22 04/14/17 09:22 Labs: Short CBC 04/14/17 Range/Units 09:22 WBC 6.3 (4.3-11.1) K/mcL Hgb 11.7 L (12.9-16.9) g/dL Hct 34.2 L (37.5-50.1) % Plt Count 111 L (140-400) K/mcL Neutrophils # 4.1 (1.6-8.9) K/mcL BMP 04/14/17 09:22 Sodium 139 Potassium 3.9 Chloride 111 H Carbon Dioxide 20 BUN 13 Creatinine 4.73 H Glucose 83 Calcium 8.4 L Consult Discharge Plan - Plan Referrals: Ad Watson [Outside] - 04/19/17 9:00 am
[2017-04-14] MEDS: Acetaminophen 325 MG TABLET PO PRN ×2 (15:03→21:13)
[2017-04-14] MEDS ORDERED: *HR* OxyCODONE/APAP 5/325 TABLET PO ONE (17:03)
[2017-04-14] MEDS: *HR* Promethazine 25 MG/ML VIAL IVP PRN (17:42)
[2017-04-15] MEDS: Ipratropium/Albuterol Neb 3 ML IH SCH ×6 (03:40→23:14)
[2017-04-15] MEDS: 0.9 % Sodium Chloride 1,000 ML IVC SCH ×3 (05:24→20:03)
[2017-04-15] MEDS: *HR* Heparin 5,000 UNIT/ML VIAL SQ SCH ×3 (05:24→22:01)
[2017-04-15 05:55] LABS: Basophils % 0.3 %; Eosinophils # 0.1 K/mcL (0.0-0.6); Eosinophils % 1.2 %; Hematocrit 34.9 % (37.5-50.1); Hemoglobin 11.9 g/dL (12.9-16.9); Immature Granulocytes % 0.1 % (0-4); Lymphocytes # 1.7 K/mcL (0.6-4.6); Lymphocytes % 24.9 %; Mean Corpuscular HGB Conc 34.1 g/dL (31.6-35.5); Mean Corpuscular Hemoglobin 28.3 pg (28.0-33.3); Mean Corpuscular Volume 83.1 fL (83.0-100.0); Mean Platelet Volume 11.9 fL (9.4-12.4); Monocytes # 0.9 K/mcL (0.0-1.3); Monocytes % 12.7 %; Neutrophils # 4.1 K/mcL (1.6-8.9); Platelet Count 117 K/mcL (140-400); Red Cell Distribution Width 12.9 % (11.5-14.5); Segmented Neutrophils % 60.8 %
[2017-04-15 06:07] LABS: Calcium 8.4 mg/dL (8.6-10.8); Magnesium 1.6 mg/dL (1.6-2.6); Phosphorous 4.6 mg/dL (2.3-4.7); Potassium 4.2 mEq/L (3.5-4.5)
[2017-04-15] MEDS: *HR* HYDROmorphone 2 MG/ML SYRINGE IVP PRN ×3 (09:14→20:01)
[2017-04-15] MEDS: *HR* Promethazine 25 MG/ML VIAL IVP PRN ×2 (09:14→16:53)
[2017-04-15] MEDS: Lactobacillus 1 EACH CAP.SPRINK PO SCH (09:23)
[2017-04-15] MEDS: Levofloxacin 750 MG/150 ML 750 MG/150 ML BAG IVPB SCH (09:26)
[2017-04-15] MEDS ORDERED: 0.9 % Sodium Chloride 1,000 ML IVC ONE (10:26)
--- NOTE | 2017-04-15 11:19 | Nephrology Progress Note ---
Date of Encounter: 04/15/17 Time of Encounter: 11:16 - Assessment and Plan (1) HCAP (healthcare-associated pneumonia) Current Visit: Yes Status: Acute per primary team. vancomycin discontinued. On levofloxacin (2) LORETTA (acute kidney injury) Current Visit: No Status: Acute multifactorial, but starting to improve. Need accurate Is and Os. No acute need for ELECTRIC ENGINE MECHANIC. We will give extra saline today. (3) Opiate dependence Current Visit: No Status: Chronic monitor for withdrawl Qualifiers: Qualified Code(s): F11.20 - Opioid dependence, uncomplicated Subjective Principal diagnosis: LORETTA Interval history: Patient complaining of a migraine headache. Objective - Vital Signs Vital signs: Vital Signs Temp Pulse Resp BP Pulse Ox 04/15/17 10:46 98.4 F 71 14 130/81 95 04/15/17 07:24 98.1 F 60 13 146/84 96 04/15/17 03:55 97.6 F 59 14 131/90 100 04/15/17 00:03 97.6 F 65 16 126/77 97 04/14/17 19:58 98.6 F 70 15 143/84 96 04/14/17 15:15 98.4 F 74 16 145/90 99 Intake and Output 04/14/17 04/15/17 04/15/17 23:59 07:59 15:59 Intake Total 1000 / 1000 0 / 0 0 / 0 Output Total 350 / 350 Balance 1000 / 1000 1700 / 1700 0 / 0 Intake: IV Fluids 1000 / 1000 1000 / 1000 0.9 % Sodium Chloride 1, 1000 / 1000 1000 / 1000 000 ML @ 125 mls/hr IVC . Q8H [facility] Rx#:[id number] Oral 1050 / 1050 0 / 0 Output: Urine 350 / 350 Other: Meal Breakfast Percent of Meal Consumed 0% Weight 72.121 kg Patient Weight 04/15/17 23:59 Weight 72.121 kg - General Appearance General appearance: Present: well-developed, well-nourished EENT: Present: ATNC Neck: Present: supple Additional Comments: Respirations are unlabored Cardiology: Present: regular rate Neurologic: Present: alert and oriented x3 - Lab 04/15/17 05:21 04/15/17 05:21 Most recent lab results Calcium 8.4 mg/dL (8.6-10.8) L 04/15/17 05:21 Phosphorus 4.6 mg/dL (2.3-4.7) 04/15/17 05:21 Magnesium 1.6 mg/dL (1.6-2.6) 04/15/17 05:21 Urine Creatinine 34 mg/dL 04/13/17 10:09 Urine Sodium 63.0 mEq/L 04/13/17 10:09 Consult Discharge Plan - Plan Referrals: Ad Watson [Outside] - 04/19/17 9:00 am
[2017-04-15 11:23] LABS: Complement Component 3 102 mg/dL (88-201); Complement Component 4 26 mg/dL (10-40)
--- NOTE | 2017-04-15 12:41 | Internal Med Progress Note ---
Date of Encounter: 04/15/17 Time of Encounter: 12:39 - Assessment and plan (1) LORETTA (acute kidney injury) Current Visit: No Status: Resolved Assessment and plan: Likely drug induced kidney injury pt was reported to be on NSAIDs, receiving IV abx, and contrast study in a short span of time contributing to his worsening renal function Continue IV fluids continue to avoid all nephrotoxic agents Nephrology consultation appreciated will closely monitor Renal function shows slight improvement compared to previous day Pt received one L additional IV fluids as per nephrology if continues to improve, likely d/c in am (2) Drug abuse Current Visit: No Status: Chronic Assessment and plan: irrigation worker consult 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 closely monitor for withdrawal symptoms (3) DVT prophylaxis Current Visit: No Status: Acute Assessment and plan: heparin subcutaneously (4) HCAP (healthcare-associated pneumonia) Current Visit: Yes Status: Acute Assessment and plan: Last day of IV abx (day 04/30) clinically improved (5) Opiate dependence Current Visit: No Status: Chronic Qualifiers: Qualified Code(s): F11.20 - Opioid dependence, uncomplicated (6) Colitis Current Visit: Yes Status: Resolved - Subjective Interval history: Patient seen and examined at bedside. Resting in bed and reports of feeling better compared to previous day. Reports of severe headache yesterday that has now resolved. tolerating PO intake. No overnight issues reported. - Constitutional Vitals: Temp Pulse Resp BP Pulse Ox 98.4 F 71 14 130/81 95 04/15/17 10:46 04/15/17 10:46 04/15/17 10:46 04/15/17 10:46 04/15/17 10:46 General appearance: Present: A&O X 3, no acute distress, answers questions appropriately - Head Head exam: Present: atraumatic, normocephalic - Eye Eye exam: Present: normal appearance, conjuntiva pink, sclera anicteric - Respiratory Respiratory exam: Present: CTAB. Absent: accessory muscle use, rales, rhonchi, wheezes - Cardiovascular Cardiovascular exam: Present: RRR, +S1, +S2. Absent: diastolic murmur, gallop, rubs, systolic murmur - GI/Abdominal GI/Abdominal exam: Present: normal bowel sounds, soft, no peritoneal signs. Absent: distended, tenderness - Extremities Exam Extremities exam: Present: warm, radial pulses palpable and symetrical. Absent : calf tenderness, cyanotic, pedal edema - Neurological Exam Neurological exam: Present: alert, oriented X3 - Psychiatric Psychiatric exam: Present: normal affect, normal mood Internal Medicine: Result - Labs CBC & Chem 7: 04/15/17 05:21 04/15/17 05:21 Labs: Short CBC 04/15/17 Range/Units 05:21 WBC 6.8 (4.3-11.1) K/mcL Hgb 11.9 L (12.9-16.9) g/dL Hct 34.9 L (37.5-50.1) % Plt Count 117 L (140-400) K/mcL Neutrophils # 4.1 (1.6-8.9) K/mcL BMP 04/15/17 05:21 Sodium 140 Potassium 4.2 Chloride 111 H Carbon Dioxide 20 BUN 13 Creatinine 4.30 H Glucose 78 Calcium 8.4 L Consult Discharge Plan - Plan Referrals: Ad Watson [Outside] - 04/19/17 9:00 am
[2017-04-15] MEDS: Acetaminophen 325 MG TABLET PO PRN (19:10)
[2017-04-16] MEDS: Ipratropium/Albuterol Neb 3 ML IH SCH ×3 (04:20→11:10)
[2017-04-16 04:29] LABS: Basophils % 0.5 %; Eosinophils # 0.1 K/mcL (0.0-0.6); Hemoglobin 12.4 g/dL (12.9-16.9); Immature Granulocytes % 0.5 % (0-4); Lymphocytes # 1.7 K/mcL (0.6-4.6); Lymphocytes % 27.5 %; Mean Corpuscular HGB Conc 34.4 g/dL (31.6-35.5); Mean Corpuscular Hemoglobin 28.6 pg (28.0-33.3); Mean Corpuscular Volume 83.1 fL (83.0-100.0); Mean Platelet Volume 11.2 fL (9.4-12.4); Monocytes # 0.6 K/mcL (0.0-1.3); Monocytes % 9.6 %; Neutrophils # 3.6 K/mcL (1.6-8.9); Platelet Count 146 K/mcL (140-400); Red Blood Count 4.33 M/mcL (4.19-5.50); Red Cell Distribution Width 12.9 % (11.5-14.5); Segmented Neutrophils % 59.9 %
[2017-04-16 04:45] LABS: Calcium 8.7 mg/dL (8.6-10.8); Magnesium 1.4 mg/dL (1.6-2.6); Phosphorous 4.5 mg/dL (2.3-4.7); Potassium 3.6 mEq/L (3.5-4.5)
[2017-04-16] MEDS: 0.9 % Sodium Chloride 1,000 ML IVC SCH (05:03)
[2017-04-16] MEDS: *HR* Heparin 5,000 UNIT/ML VIAL SQ SCH (05:36)
[2017-04-16] MEDS: Lactobacillus 1 EACH CAP.SPRINK PO SCH (07:27)
[2017-04-16] MEDS ORDERED: Magnesium Sulfate 2 GM in D5% in Water 100 ML IVPB ONE (08:04)
[2017-04-16] MEDS: *HR* Promethazine 25 MG/ML VIAL IVP PRN (08:58)
[2017-04-16] MEDS: *HR* HYDROmorphone 2 MG/ML SYRINGE IVP PRN (08:59)
[2017-04-16 10:42] VITALS: BP 136/89
[2017-04-16 11:15] LABS: ANA IgG by ELISA NONE DETECTED (None Detected)
--- NOTE | 2017-04-16 12:22 | Discharge Summary ---
Date of Encounter: 04/16/17 Time of Encounter: 12:18 - Discharge Diagnosis (1) LORETTA (acute kidney injury) Priority: Secondary Status: Acute (2) Drug abuse Priority: Secondary Status: Chronic (3) DVT prophylaxis Priority: Secondary Status: Acute (4) HCAP (healthcare-associated pneumonia) Priority: Primary Status: Resolved (5) Opiate dependence Priority: Primary Status: Chronic Qualifiers: Qualified Code(s): F11.20 - Opioid dependence, uncomplicated (6) Colitis Priority: Secondary Status: Resolved - Discharge Medications Home Medications: Acetaminophen [8 Hour] 650 mg PO Q8H PRN #20 tablet.er 03/25/17 [Rx] Albuterol Sulfate [Albuterol Inhaler] 2 puff IH Q4HR PRN #1 [email or web address] 03/25/17 [Rx] Aspirin/Acetaminophen/Caffeine [Excedrin Migraine Caplet] 1 tab PO DAILY PRN [History] Allergies/Adverse Reactions: Allergies No Known Allergies Allergy (Verified 01/31/17 17:52) Date of admission: 04/08/17 03:14 Primary care physician: PCP NO Consults: 04/08/17 13:01 Consult to [facility] [CONS] Routine Reason for SW Consult: SI/OD 04/08/17 13:54 Consult to Psychiatry [CONS] Routine Consulting Provider: Psychiatry Janeth Reason for Consult: Suicidal idea and attempt Call Completed: Yes 04/12/17 08:12 Consult to Nephrology [CONS] Routine Consulting Provider: Kidney Janeth/SARAH/SAMY/BARRY Reason for Consult: LORETTA Call Completed: No Discharging clinician: Helen Bradley Anticipated date of discharge: 04/16/17 - Patient Status Disposition: Home, Self-Care Condition: Good Functional capacity at discharge: independent ambulation Overall status at discharge: patient is back to baseline - Ambulatory Orders Ambulatory Orders: Basic Metabolic Panel [CHEM] Time Frame: 1 Week, Facility: [facility], Location: Lab - Discharge Instructions Follow Up With: Ad Watson [Outside] - 04/19/17 9:00 am Additional Instructions: Please follow up with your primary care physician and knot saw operator within one week after your discharge from the hospital. Your home dose of ibuprofen has been discontinued. Please do not take any NSAIDS (ibuprofen, motrin, naproxen, aleve) due to your kidney function Please get your lab work done prior to your follow up appointment with the knot saw operator. - Diet and Activity Activity: resume usual activities as tolerated Diet: advance to your usual diet Hospital course: Mr. Desai is a 26 year old male with PMH of Heroin abuse who was admitted for management of opioid overdose. Upon further evaluation, he was found to have PNA for which he was started on empiric IV abx therapy. His hospital course was complicated by drug induced LORETTA secondary to Vancomycin toxicity. He also reported of using NSAIDs on regular basis. All nephrotoxic agents were discontinued and patient was started on IV fluids. He was closely followed by nephrology. His renal function is beginning to improve. He is hemodynamically stable at this time. He was evaluated by social media director for detox facilities after his discharge. Patient refuses any help at this time and wishes to be discharged to home. At this time patient is stable for discharge and will follow up with PCP and nephrology after discharge. - Time Spent with Patient Total time spent providing and/or coordinating discharge services: Less than 30 minutes - Constitutional Vitals: Temp Pulse Resp BP Pulse Ox 98.3 F 67 15 136/89 97 04/16/17 10:42 04/16/17 10:42 04/16/17 10:42 04/16/17 10:42 04/16/17 10:42 General appearance: Present: A&O X 3, no acute distress, answers questions appropriately - Head Head exam: Present: atraumatic, normocephalic - Eye Eye exam: Present: normal appearance, conjuntiva pink, sclera anicteric - Respiratory Respiratory exam: Present: CTAB. Absent: accessory muscle use, rales, rhonchi, wheezes - Cardiovascular Cardiovascular exam: Present: RRR, +S1, +S2. Absent: diastolic murmur, gallop, rubs, systolic murmur - GI/Abdominal GI/Abdominal exam: Present: normal bowel sounds, soft, no peritoneal signs. Absent: distended, tenderness - Extremities Exam Extremities exam: Present: warm, radial pulses palpable and symetrical. Absent : calf tenderness, cyanotic, pedal edema - Neurological Exam Neurological exam: Present: alert, oriented X3 - Psychiatric Psychiatric exam: Present: normal affect, normal mood
--- NOTE | 2017-04-16 12:58 | Nephrology Progress Note ---
Date of Encounter: 04/16/17 Time of Encounter: 12:56 - Assessment and Plan (1) HCAP (healthcare-associated pneumonia) Current Visit: Yes Status: Resolved per primary team. vancomycin discontinued. On levofloxacin (2) LORETTA (acute kidney injury) Current Visit: No Status: Acute multifactorial, but improving. Need accurate Is and Os. No acute need for DEVELOPMENT DIRECTOR. ok for discharge His renal function shoud improve back to baseline. Subjective Principal diagnosis: LORETTA Interval history: Patient complaining of a migraine headache. He states it is improved compared to yesterday. Objective - Vital Signs Vital signs: Vital Signs Temp Pulse Resp BP Pulse Ox 04/16/17 10:42 98.3 F 67 15 136/89 97 04/16/17 06:48 98.5 F 75 18 146/93 95 04/16/17 03:49 98.9 F 68 16 143/91 95 04/15/17 23:30 98.3 F 71 16 119/77 95 04/15/17 20:17 95 04/15/17 18:21 100.3 F H 71 16 139/88 95 04/15/17 15:36 98.3 F 76 18 138/88 96 Intake and Output 04/15/17 04/16/17 04/16/17 23:59 07:59 15:59 Intake Total 1000 / 1000 1000 / 1000 Balance 1000 / 1000 1000 / 1000 Intake: IV Fluids 1000 / 1000 1000 / 1000 0.9 % Sodium Chloride 1, 1000 / 1000 1000 / 1000 000 ML @ 125 mls/hr IVC . [facility]H [facility] Rx#:[id number] Other: Weight 74.661 kg Patient Weight 04/16/17 23:59 Weight 74.661 kg - General Appearance General appearance: Present: well-developed, well-nourished EENT: Present: ATNC Neck: Present: supple Cardiology: Present: regular rate Integumentary: Present: warm and dry Psychiatric: Present: mood/affect appropriate - Lab 04/16/17 03:59 04/16/17 03:59 Most recent lab results Calcium 8.7 mg/dL (8.6-10.8) 04/16/17 03:59 Phosphorus 4.5 mg/dL (2.3-4.7) 04/16/17 03:59 Magnesium 1.4 mg/dL (1.6-2.6) L 04/16/17 03:59 Urine Creatinine 34 mg/dL 04/13/17 10:09 Urine Sodium 63.0 mEq/L 04/13/17 10:09 Consult Discharge Plan - Plan Instructions: Acute Kidney Injury (DC), Pneumonia (DC) Additional Instructions: Please follow up with your primary care physician and pole peeling machine operator within one week after your discharge from the hospital. Your home dose of ibuprofen has been discontinued. Please do not take any NSAIDS (ibuprofen, motrin, naproxen, aleve) due to your kidney function Please get your lab work done prior to your follow up appointment with the pole peeling machine operator. [facility] - 04/19/17 9:00 am Neo Fermin MD [Partnered Physician] - (Please call to schedule hospital follow up in 1 week.)
[2017-04-17 11:20] LABS: Myeloperoxidase Ab 0 AU/mL (0-19); Serine Protease-3 Antibody 0 AU/mL (0-19)
== END 2017-04-16 13:22 | disposition home or self-care (01) | DRG 816 ==
LOC: EMEROO 22:19 → 2NNU 22:19 → 3BNU 04-08 02:20 → SUATTDRO 04-08 03:14
PROVIDERS: ADMIT Internal Medicine; ATTEND Internal Medicine

== ENCOUNTER 2017-12-24 11:49 | Observation (INO) ==
[2017-12-24] MEDS ORDERED: *HR* FentaNYL (PF) 100 MCG/2 ML VIAL IVP ONE (12:04)
[2017-12-24] MEDS ORDERED: Ondansetron 4 MG/2 ML VIAL IVP ONE ×2 (12:04→13:45)
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
[2017-12-24] MEDS ORDERED: *HR* LORazepam 2 MG/ML VIAL IVP ONE (12:08)
[2017-12-24] MEDS ORDERED: *HR* LORazepam 2 MG/ML VIAL ONE (12:10)
[2017-12-24 12:44] LABS: Basophils % 0.2 %; Eosinophils % 0.3 %; Immature Granulocytes % 0.2 % (0-4); Lymphocytes # 2.1 K/mcL (0.6-4.6); Lymphocytes % 17.6 %; Mean Corpuscular Hemoglobin 28.3 pg (28.0-33.3); Mean Corpuscular Volume 80.8 fL (83.0-100.0); Mean Platelet Volume 11.1 fL (9.4-12.4); Monocytes # 0.7 K/mcL (0.0-1.3); Monocytes % 5.6 %; Neutrophils # 9.2 K/mcL (1.6-8.9); Platelet Count 262 K/mcL (140-400); Red Blood Count 4.95 M/mcL (4.19-5.50); Red Cell Distribution Width 13.1 % (11.5-14.5); Segmented Neutrophils % 76.1 %
[2017-12-24 12:45] LABS: BUN/Creatinine Ratio 18 (6-26); Blood Urea Nitrogen 14 mg/dL (6-20); Calcium 9.9 mg/dL (8.6-10.3); Carbon Dioxide 26 mEq/L (23-29); Chloride 100 mEq/L (98-107); Glucose 92 mg/dL (70-105); Osmolality,Calculated 284 (280-300); Potassium 3.8 mEq/L (3.5-5.1); Sodium 137 mEq/L (136-145); eGFR For Non-African Americans > 60 (> 60)
[2017-12-24 12:46] LABS: Troponin I < 0.03 ng/mL (< 0.04)
[2017-12-24 12:55] LABS: INR 1.1; Prothrombin Time 12.2 Seconds (9.4-12.1)
[2017-12-24 12:58] LABS: Activated Partial Thrombo Time 33.4 Seconds (26.0-36.0)
[2017-12-24] MEDS ORDERED: cefTRIAXone 1,000 MG in Water for inj. (sterile) 20 ML 10 ML IVP ONE (14:35)
[2017-12-24] MEDS ORDERED: Naloxone 0.4 MG/ML INJ IVP PRN (16:10)
[2017-12-24] MEDS ORDERED: Acetaminophen 325 MG TABLET PO PRN (16:10)
[2017-12-24 16:25] LABS: Amphetamine Screen,Urine Positive ng/mL (Cutoff=1000); Barbiturate Screen,Urine Negative ng/mL (Cutoff=200); Benzodiazepines Screen,Urine Positive ng/mL (Cutoff=200); Cannabinoid Screen,Urine Negative ng/mL (Cutoff = 50); Cocaine Screen,Urine Negative ng/mL (Cutoff= 300); Opiate Screen,Urine Negative ng/mL (Cutoff=300); Phencyclidine Screen,Urine Negative ng/mL (Cutoff=25)
[2017-12-24] MEDS ORDERED: *HR* LORazepam 2 MG/ML VIAL IVP PRN (16:59)
[2017-12-24] MEDS ORDERED: Pantoprazole 40 MG VIAL IVP SCH (17:00)
--- NOTE | 2017-12-24 17:25 | Internal Med History&Physical ---
<Ap España - Last Filed: 12/24/17 19:24> Date of Encounter: 12/24/17 Time of Encounter: 16:00 Assessment and Plan (1) Syncope and collapse Current visit: Yes Status: Acute Acute syncope and collapse reported by pt. but unwitnessed. Pt. reports acute neck pain followed by syncope x2, first four days ago and then again today. Pt. states he came to [facility] four days ago and left ED AMA. Then reports going to [facility] on Wednesday and being dx w/TIA and discharged. Returned to [facility] ED today w/same sx. [facility] records requisition[facility] but [facility] reports pt. not in their system since 2006. Pt. tachycardic on exam and reports neck pain. CTA of neck today shows no high-grade stenosis or focal occlusion involving the head and neck vasculature. No evidence of dissection. No evidence of intracranial aneurysm. No acute intracranial findings. Right maxillary sinus disease. MRIs of the head and spine ordered but pt. refused. MRI of the head will be re- attempted w/pre-medication of ativan PO for anxiety to r/o infarct/intracranial abnormality. Bilateral carotid Dopplers ordered. Echocardiogram ordered. Cardiology consult ordered. Falls/safety precautions. Consider neurology consult based on MRI results. Pt. discussed w/Dr. Anne who agrees w/plan of care. Pt. is high risk for further morbidity d/t current sx, current positive drug screen, hx of drug abuse, abnormal EKG, and risk factors. Observation. (2) Neck pain Current visit: Yes Status: Acute Acute neck pain that began four days ago and has continued. Pt. reports shock- type pain in neck that is transient and accompanied by syncope. CTA of neck today shows no high-grade stenosis or focal occlusion involving the head and neck vasculature. No evidence of dissection. No evidence of intracranial aneurysm. No acute intracranial findings. Pt. received 25 mg IVP fentanyl in ED and reports it did not touch his pain. Tylenol 650 mg Q6 PRN for pain d/t pts. use of unknown recent benzodiazepines and amphetamines. Bilateral carotid Dopplers ordered. (3) Abnormal EKG Current visit: Yes Status: Acute EKG ordered d/t tachycardia and positive drug screen for benzodiazepines and amphetamines. Hx of drug abuse and overdose. EKG shows sinus tachycardia with short TN interval TN interval <120 at 108. Concern for possible WPW d/t Delta wave in V4. Cardiology consult ordered. (4) Sinusitis Current visit: Yes Status: Acute CTA of the neck shows right maxillary sinus disease. There is heterogeneous enhancement of the submandibular glands bilaterally with multiple enlarged cervical lymph nodes clinical correlation is recommended for any possibility of infectious or inflammatory process within neck. Ceftriaxone 1,000 mg administered in ED. Will continue IVPB ceftriaxone 2000 mg daily beginning . Blood cultures 2. Will adjust ABX coverage based on culture results. Qualifiers: Sinusitis location: unspecified location Chronicity: acute Recurrence: not specified as recurrent Qualified Code(s): J01.90 - Acute sinusitis, unspecified (5) Leukocytosis Current visit: Yes Status: Acute Acute leukocytosis w/WBC of 12.1 on admission. Pt. has lymphadenopathy present in neck and CTA of the neck shows right maxillary sinus disease. There is heterogeneous enhancement of the submandibular glands bilaterally with multiple enlarged cervical lymph nodes clinical correlation is recommended for any possibility of infectious or inflammatory process within neck. Ceftriaxone 1, 000 mg administered in ED. Will continue IVPB ceftriaxone 2000 mg daily beginning 12/25/17. Blood cultures 2. Will adjust ABX coverage based on culture results. Qualifiers: Leukocytosis type: unspecified Qualified Code(s): D72.829 - Elevated white blood cell count, unspecified (6) Drug abuse Current visit: Yes Status: Chronic Hx of chronic drug abuse w/reported heroin overdose x2 four years ago, cocaine use several years ago, and current abuse of benzodiazepines and methamphetamines per pt. Urine tox screen positive for benzodiazepines and methamphetamines today. Discussion w/pt. regarding continued abuse of drugs on his overall and cardiac health d/t abnormal ECG today. Pt. voiced understanding as states this was his wake-up call. (7) DVT prophylaxis Current visit: Yes Status: Acute Bilateral SCDs on pts. LEs d/t report of hemoptysis. Monitor pt. for signs of bleeding. Internal Medicine - H&P: HPI Chief complaint: Neck pain/Syncope Admitted From: Emergency Dept Plans for Post Hospital Care: Home History of present illness: Mr. Desai is a 27 year old male w/PMH of migraines and drug abuse as well as psychiatric hx of anxiety, depression, and previous suicide attempt presents from the ED w/chief complaint of neck pain and syncope that occurred four days ago and again today. Pt. states he was sitting down and had sharp pain in neck and blacked out 4 days ago. Pt. reports he woke up w/total body contractions and facial droop. Came to [facility] ED and signed out AMA. Went to [facility] . States [facility] dx him w/TIA/CVA. Pt. came back to [facility] ED today for same sx in addition to sharp and stabbing chest pain, SOB, and reports of coughing up clotted blood for the past four days. Also states his throat closed last night and required an Epi pen. Pt. states 25 mg IVP Fentanyl and Ativan in ED did not help his pain. Pt. denies recent illness, fever, chills, nausea, vomiting, changes in vision, headache, abdominal pain, diarrhea, or constipation. Past Med Surg Social Fam HX - Past Medical History Source: patient, old records reviewed Medical history: migraine Psychiatric history: anxiety, depression, prior suicide attempt, previous psychiatric hospitalization - Past Surgical History Surgical History: no surgical history, other (Tonsillectomy) - Social History Smoking Status: Never smoker Smokeless Tobacco Status: No Alcohol use: rarely Drug use: cocaine, opiates, methamphetamine, prescription drug abuse (Xanax, also reports taking his mother's Flexeril) Current living situation: Home Activity Level: Independent ambulation Recent Out of Country Travel Within the Last 8 Weeks: No Exposure or Possible Exposure to Illness During Travel: No - Family History Mother Race: Family Member Ethnicity: Non- Living Status: Still Living Hx Family Cardiac Disorders: Yes (HTN) Hx Family GI Disorders: Yes (Crohn's disease) Father Race: Family Member Ethnicity: Non- Living Status: Age at : 62 Cause of : HIV Hx Family Endocrine Disorder: Yes (HepC) Hx Family Musculoskeletal Disorders: Yes (Fibromyalgia) Hx Family Autoimmune Disorders: Yes (HIV) Grandfather Race: Family Member Ethnicity: Non- Living Status: Still Living Hx Family Cardiac Disorders: Yes (CVA, aneurysm) Internal Medicine - H&P: Meds Aspirin [Lo-Dose Aspirin EC] 81 mg PO DAILY 12/24/17 [History] 3 Allergy/AdvReac Type Severity Reaction Status Date / Time No Known Allergies Allergy Verified 12/24/17 11:54 All Systems PM: A 10-system review of systems was performed and is negative for pertinent findings except as documented above in the HPI. - Constitutional Constitutional: no chills, no fever(s), no night sweats - EENT Eyes: no change in vision, no discharge, no pain, no photophobia Ears: no ear discharge, no ear pain, no tinnitus Nose, mouth and throat: no dysphagia, no nasal discharge, no neck pain, no sore throat - Breasts Breasts: as per HPI - Cardiovascular Cardiovascular ROS IM: as per HPI, chest pain, dyspnea, dyspnea on exertion, syncope, no diaphoresis, no lightheadedness, no palpitations - Respiratory Respiratory: as per HPI, cough (W/reported severe blood clots), dyspnea, hemoptysis, no wheezing, no excessive phlegm production - Gastrointestinal Gastrointestinal: no abdominal pain, no diarrhea, no hematemesis, no hematochezia, no melena, no nausea, no vomiting - Genitourinary Genitourinary ROS male: as per HPI - Musculoskeletal Musculoskeletal ROS IM: as per HPI, other (Feeling of electrical charges/shocks in neck), no numbness, no tingling - Integumentary Integumentary IM: no rash, no unusual bruising - Neurological Neurological ROS: burning sensations (Neck), no confusion, no convulsions, no focal weakness, no numbness, no tingling, no tremor(s) - Psychiatric Psychiatric: as per HPI, anxiety, depression, other (Previous suicide attempt, previous psychiatric hospitalization) - Endocrine Endocrine IM: as per HPI - Hematologic/Lymphatic Hematologic/Lymphatic: no easy bruising - Allergic/Immunologic Allergic/Immunologic: as per HPI, throat swelling (Last night) - Constitutional Vitals: Temp Pulse Resp BP Pulse Ox 97.2 F L 106 16 160/88 94 12/24/17 11:52 12/24/17 11:52 12/24/17 11:52 12/24/17 11:52 12/24/17 11:52 General appearance: Present: cooperative, mild distress, A&O X 3, underweight, answers questions appropriately - Head Head exam: Present: atraumatic, normocephalic - Eye Eye exam: Present: PERRL, conjuntiva pink, sclera anicteric Pupils: Present: PERRL - ENT ENT exam: Present: normal exam - Neck Neck exam general surgery: Present: supple, trachea midline. Absent: lymphadenopathy - Respiratory Respiratory exam: Present: CTAB. Absent: accessory muscle use, rales, rhonchi, wheezes - Cardiovascular Cardiovascular exam: Present: tachycardia - GI/Abdominal GI/Abdominal exam: Present: normal bowel sounds, soft, no peritoneal signs. Absent: distended, tenderness - Rectal Rectal exam: Present: deferred - Additional comments: exam deferred. - Extremities Exam Extremities exam: Present: warm, radial pulses palpable and symmetrical. Absent : calf tenderness, cyanotic, pedal edema - Back Exam Back exam: Present: normal inspection - Neurological Exam Neurological exam: Present: alert, CN II-XII intact, oriented X3, no focal deficits. Absent: pronater drift, facial droop, speech deficit - Psychiatric Psychiatric exam: Present: agitated, anxious - Skin Skin exam: Present: dry, intact Internal Med - H&P Results - Labs CBC & Chem 7: 12/24/17 12:10 12/24/17 12:10 - Diagnostic Studies Other Images Additional comments: Impressions Angiography CT 12/24/17 12:03 IMPRESSION: No high-grade stenosis or focal occlusion involving the head and neck vasculature. No evidence of dissection. No evidence of intracranial aneurysm. No acute intracranial findings. Right maxillary sinus disease. Correlate with symptoms. Marked heterogeneous enlargement of the lingual tonsil at the tongue base. There is heterogeneous enlargement of the adenoids. There is heterogeneous enhancement of the submandibular glands bilaterally with multiple enlarged cervical lymph nodes. Question small amount of retropharyngeal fluid without drainable abscess. Clinical correlation is recommended for any possibility of infectious or inflammatory process within neck. No cervical abscess is identified. Follow-up after resolution of acute symptoms is recommended to document resolution of the above findings and exclude other processes. D/ / 12/24/2017 13:58:15 Tomas Dial MD / [facility] Interpreting Provider: Tomas Dial MD Neck CTA 12/24/17 12:03 IMPRESSION: No high-grade stenosis or focal occlusion involving the head and neck vasculature. No evidence of dissection. No evidence of intracranial aneurysm. No acute intracranial findings. Right maxillary sinus disease. Correlate with symptoms. Marked heterogeneous enlargement of the lingual tonsil at the tongue base. There is heterogeneous enlargement of the adenoids. There is heterogeneous enhancement of the submandibular glands bilaterally with multiple enlarged cervical lymph nodes. Question small amount of retropharyngeal fluid without drainable abscess. Clinical correlation is recommended for any possibility of infectious or inflammatory process within neck. No cervical abscess is identified. Follow-up after resolution of acute symptoms is recommended to document resolution of the above findings and exclude other processes. D/ / 12/24/2017 13:58:15 Tomas Dial MD / [facility] Interpreting Provider: Tomas Dial MD <Mikhail Anne - Last Filed: 12/24/17 19:43> Date of Encounter: 12/24/17 Time of Encounter: 17:30 - Constitutional Vitals: Temp Pulse Resp BP Pulse Ox 98.0 F 115 16 134/89 100 12/24/17 18:23 12/24/17 18:23 12/24/17 18:23 12/24/17 18:23 12/24/17 18:23 General appearance: Present: A&O X 3, answers questions appropriately Exam: anxious/nervous - Head Head exam: Present: normocephalic - Eye Eye exam: Present: EOMI, PERRL. Absent: scleral icterus Pupils: Present: normal accommodation - ENT Additional comments: enlarged anterior cervical lymph nodes (tender); post nasal drip - Neck Neck exam general surgery: Present: supple. Absent: nuchal rigidity - Respiratory Respiratory exam: Present: CTAB. Absent: rales, rhonchi, wheezes - Cardiovascular Cardiovascular exam: Present: RRR, +S1, +S2, tachycardia. Absent: diastolic murmur, systolic murmur - GI/Abdominal GI/Abdominal exam: Present: normal bowel sounds, soft. Absent: tenderness - Extremities Exam Extremities exam: Present: full ROM, normal capillary refill, warm, radial pulses palpable and symmetrical. Absent: calf tenderness - Back Exam Back exam: Present: normal inspection. Absent: CVA tenderness (L), CVA tenderness (R) - Neurological Exam Neurological exam: Present: alert, CN II-XII intact, oriented X3, no focal deficits - Psychiatric Psychiatric exam: Present: anxious - Skin Skin exam: Present: dry, warm. Absent: rash Internal Med - H&P Results - Labs CBC & Chem 7: 03/02/18 12:10 12/24/17 12:10 Labs: Cardiac Enzymes 12/24/17 Range/Units 18:07 Troponin I < 0.03 (< 0.04) ng/mL - Attending Attestation I discussed the patient [place], PMH, ROS, lab data, and exam findings with Richard España CNP. I then saw and examined patient myself as well. I reviewed his EKG personally and note a short TN interval and some delta waves -- most prominent in V4. I am concerned he might have WPW, and with his history of drug abuse, I worry he could succumb to fatal arrhythmia. I confronted him about his drug use and initially he denied any use recently, admitting only to past use several years ago. However, when I asked him about his postive drug screen in October and then today, he initially denied such use. He later indirectly admitted to using and abusing street drugs, mostly amphetamines and benzodiazepenes. He was tearful and regretful. I do not believe he had any TIA or stroke. Furthermore, we contacted [facility], and they have no record of recent visit their as he claims. We asked cardiology yo see patient for concerns of possible WPW. Additionally, we are ordering ECHO and Carotid Dopplers given his initial TIA claims. I do not feel an MRI is necessary at this time as I suspect his NURSE [place] claims are likely due to drug abuse. If symptoms recur or worsen, we can then pursue an MRI. I discussed with patient at length and he agrees with my/our plan. Other than my comments above and noted exam findings, I agree with Richard's assessment and plan.
[2017-12-24] MEDS ORDERED: Ondansetron 4 MG/2 ML VIAL IVP PRN (18:00)
[2017-12-24] MEDS ORDERED: *HR* LORazepam 1 MG TABLET PO PRN (18:19)
[2017-12-24 19:49] VITALS: BP 134/90
--- NOTE | 2017-12-24 23:46 | Event Note ---
Date of Encounter: 12/24/17 Time of Encounter: 20:15 I was called to patient's room at 20:15 d/t report of patient's agitation and request to leave AMA. When I entered the patient's room he was packing his belongings and was visibly upset. When I asked the patient what was wrong, he stated that no one cared about his treatment here. I went over our previous discussion from today regarding his positive drug screen for amphetamines and benzodiazepines and how I would only be able to give him Tylenol for his pain d/ t not knowing exactly what drugs he had taken, in what quantities, and when. Pt. stated that he was leaving AMA and I told him this was against my medical advice d/t his abnormal EKG earlier which was concerning for possible WPW based on Delta wave in V4. Pt. stated that he had left our ED four days ago AMA and he was going to do so now. Again, I stated that cardiology had been consulted on his case and that it was in his best interest to stay for treatment. I reiterated that his heart could stop if our suspicions for WPW were correct and based on his current drug abuse. He again stated that he was leaving and would seek treatment elsewhere. On exam earlier in the day, patient reported severe neck pain for the past four days as well as syncope x2. Pt. has hx of drug abuse and previous overdose/suicide attempt. Pt. reported he hadn't used since high school. Medical records show he was seen for drug use within the past several years. Urine tox screen was ordered and was positive for benzodiazepines and amphetamines. Pt. stated he was seen at [facility] two days ago for same sx and was told by [facility] that he had a TIA and was discharged. [facility] records were requisitioned and [facility] contacted. Charge nurse was informed that pt. had not been seen since 2006 there. Pts. conflicting reports of no drug use, recent drug use of other's prescription Xanax, and current positive tox screen directed critical decision-making regarding holding administration of narcotic pain medications. Pt. signed AMA paperwork and left premises on foot after removal of his IV access.
[2017-12-25] MEDS ORDERED: cefTRIAXone 2,000 MG in Water for inj. (sterile) 20 ML 20 ML IVP SCH (15:00)
--- NOTE | 2017-12-28 08:54 | Electrocardiograph Report ---
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
== END 2017-12-24 20:28 | disposition left against medical advice (07) ==
LOC: 3ANU 11:49 → EMEROO 11:49 → 3ANU 15:05
PROVIDERS: ADMIT Pediatrics; ATTEND Family Medicine